=== PATIENT | male | born 1965 | race Caucasian/White ===

== ENCOUNTER 2020-06-16 15:24 | Inpatient (IN) | payer OTHER ==
[2020-06-16 16:40] VITALS: BMI 20.9
[2020-06-16] MEDS ORDERED: chlordiazePOXIDE HCL 25 MG CAPSULE PO PRN (18:11)
[2020-06-16] MEDS ORDERED: ACETAMINOPHEN 325 MG TABLET (FP) PO PRN (18:11)
[2020-06-16] MEDS ORDERED: MENTHOL/PHENOL 1 EACH UD MM PRN (18:11)
[2020-06-16] MEDS ORDERED: chlordiazePOXIDE HCL 25 MG CAPSULE PO ONE (18:11)
[2020-06-16] MEDS ORDERED: BISMUTH SUBSALICYLATE 524 MG/30 ML UD PO PRN (18:11)
[2020-06-16] MEDS ORDERED: MAGNESIUM HYDROX 2400MG/30ML ORAL SUSPENSION 30 ML CUP PO PRN (18:11)
[2020-06-16] MEDS ORDERED: METHADONE HCL 10 MG TABLET (FOR DETOX USE ONLY) PO ONE (18:11)
[2020-06-16] MEDS ORDERED: ONDANSETRON *ODT* 4 MG TABLET SL PRN (18:11)
[2020-06-16] MEDS ORDERED: MAGNESIUM CITRATE 300 ML BOTTLE PO PRN (18:11)
[2020-06-16] MEDS ORDERED: MAG HYDROX/AL HYDROX/SIMETH 30 ML UNIT-DOSE CUP PO PRN (18:11)
[2020-06-16] MEDS ORDERED: NICOTINE POLACRILEX 2 MG GUM BUC PRN (18:11)
[2020-06-16] MEDS: NICOTINE 7 MG/24 HOURS TOPICAL PATCH TD SCH (19:32)
[2020-06-16] MEDS: chlordiazePOXIDE HCL 25 MG CAPSULE PO SCH (22:38)
[2020-06-16] MEDS: THIAMINE HCL 100 MG TABLET (FP) PO SCH (22:38)
[2020-06-16] MEDS: cloNIDine HCL 0.1 MG TABLET PO PRN (22:38)
[2020-06-16] MEDS: hydrOXYzine PAMOATE 25 MG CAPSULE (FP) PO SCH (22:38)
[2020-06-16] MEDS: MELATONIN 5 MG TABLETS PO SCH (23:17)
[2020-06-17] MEDS: chlordiazePOXIDE HCL 25 MG CAPSULE PO SCH ×4 (06:40→22:36)
[2020-06-17] MEDS: hydrOXYzine PAMOATE 25 MG CAPSULE (FP) PO SCH ×5 (06:40→22:36)
[2020-06-17] MEDS: ACETAMINOPHEN 325 MG TABLET (FP) PO PRN (09:04)
[2020-06-17] MEDS ORDERED: METHADONE HCL 10 MG TABLET (FOR DETOX USE ONLY) ONE (09:28)
[2020-06-17] MEDS ORDERED: METHADONE HCL 5 MG TABLET (FOR DETOX USE ONLY) ONE (09:28)
[2020-06-17] MEDS ORDERED: METHADONE (DETOX) 20 MG, METHADONE (DETOX) 5 MG PO ONE (10:00)
[2020-06-17] MEDS: PRENATAL VITAMINS W/ FOLIC ACID TABLET (FP) PO SCH (10:08)
[2020-06-17] MEDS: NICOTINE 7 MG/24 HOURS TOPICAL PATCH TD SCH (10:08)
[2020-06-17] MEDS: cloNIDine HCL 0.1 MG TABLET PO PRN (12:53)
[2020-06-17] MEDS: THIAMINE HCL 100 MG TABLET (FP) PO SCH (22:36)
[2020-06-17] MEDS: MELATONIN 5 MG TABLETS PO SCH (22:36)
[2020-06-18] MEDS: chlordiazePOXIDE HCL 25 MG CAPSULE PO SCH ×4 (07:00→22:40)
[2020-06-18] MEDS: hydrOXYzine PAMOATE 25 MG CAPSULE (FP) PO SCH ×2 (07:00→10:09)
[2020-06-18] MEDS ORDERED: METHADONE HCL 10 MG TABLET (FOR DETOX USE ONLY) PO ONE (10:00)
[2020-06-18] MEDS: PRENATAL VITAMINS W/ FOLIC ACID TABLET (FP) PO SCH (10:09)
[2020-06-18] MEDS: NICOTINE 7 MG/24 HOURS TOPICAL PATCH TD SCH (10:09)
[2020-06-18] MEDS: METHOCARBAMOL 500 MG TABLET PO PRN ×2 (10:15→22:40)
[2020-06-18] MEDS: IBUPROFEN 400 MG TABLET (FP) PO PRN ×2 (10:15→17:46)
[2020-06-18 10:28] LABS: HEMATOCRIT 42.8 % (35.4-49); HEMOGLOBIN 14.1 GM/dL (11.7-16.9); MCH 28.5 pg (25.7-33.7); MCHC 33.1 g/dl (32.0-35.9); MEAN CELL VOLUME 86.1 fl (80-96); MEAN PLT VOLUME 7.8 fl (7.5-11.1); PLATELET COUNT 294 K/MM3 (134-434); RBC 4.96 M/mm3 (4.00-5.60); WHITE BLOOD COUNT 7.4 K/mm3 (4.0-10.0)
[2020-06-18 10:40] LABS: BLOOD UREA NITROGEN 24.6 mg/dL (7-18)
[2020-06-18 10:41] LABS: ALBUMIN 3.2 g/dl (3.4-5.0)
[2020-06-18 10:44] LABS: CREATININE 1.4 mg/dL (0.55-1.3)
[2020-06-18 10:45] LABS: BILIRUBIN,TOTAL 0.7 mg/dL (0.2-1)
[2020-06-18 10:46] LABS: TOT PROT 7.1 g/dl (6.4-8.2)
[2020-06-18] MEDS ORDERED: hydrOXYzine PAMOATE 25 MG CAPSULE (FP) PO PRN (10:58)
[2020-06-18] MEDS ORDERED: MASKS NR ONE (17:38)
[2020-06-18] MEDS: MELATONIN 5 MG TABLETS PO SCH (22:39)
[2020-06-18] MEDS: THIAMINE HCL 100 MG TABLET (FP) PO SCH (22:39)
[2020-06-19] MEDS ORDERED: chlordiazePOXIDE HCL 10 MG CAPSULE PO PRN
[2020-06-19] MEDS: chlordiazePOXIDE HCL 10 MG CAPSULE PO SCH ×4 (07:01→22:00)
[2020-06-19] MEDS ORDERED: METHADONE HCL 10 MG TABLET (FOR DETOX USE ONLY) ONE (08:49)
[2020-06-19] MEDS ORDERED: METHADONE HCL 5 MG TABLET (FOR DETOX USE ONLY) ONE (08:49)
[2020-06-19] MEDS ORDERED: METHADONE (DETOX) 10 MG, METHADONE (DETOX) 5 MG PO ONE (10:00)
[2020-06-19] MEDS: PRENATAL VITAMINS W/ FOLIC ACID TABLET (FP) PO SCH (10:12)
[2020-06-19] MEDS: NICOTINE 7 MG/24 HOURS TOPICAL PATCH TD SCH (10:17)
[2020-06-19] MEDS: cloNIDine HCL 0.1 MG TABLET PO SCH ×2 (10:23→21:54)
[2020-06-19 10:37] LABS: POTASSIUM 4.3 mmol/L (3.5-5.1)
[2020-06-19 10:44] LABS: CALCIUM 8.9 mg/dL (8.5-10.1)
[2020-06-19 10:45] LABS: ALBUMIN 3.2 g/dl (3.4-5.0); BLOOD UREA NITROGEN 21.7 mg/dL (7-18)
[2020-06-19 10:48] LABS: CREATININE 1.1 mg/dL (0.55-1.3)
[2020-06-19 10:50] LABS: TOT PROT 7.3 g/dl (6.4-8.2)
[2020-06-19] MEDS ORDERED: amLODIPine BESYLATE 10 MG TABLET (FP) PO ONE (12:04)
[2020-06-19] MEDS: IBUPROFEN 400 MG TABLET (FP) PO PRN (17:46)
[2020-06-19] MEDS: THIAMINE HCL 100 MG TABLET (FP) PO SCH (21:54)
[2020-06-19] MEDS: MELATONIN 5 MG TABLETS PO SCH (22:01)
[2020-06-20] MEDS: chlordiazePOXIDE HCL 10 MG CAPSULE PO SCH ×2 (07:17→17:50)
[2020-06-20] MEDS: cloNIDine HCL 0.1 MG TABLET PO SCH ×2 (09:37→22:01)
[2020-06-20] MEDS: PRENATAL VITAMINS W/ FOLIC ACID TABLET (FP) PO SCH (09:38)
[2020-06-20] MEDS: METHOCARBAMOL 500 MG TABLET PO PRN (09:38)
[2020-06-20] MEDS: amLODIPine BESYLATE 10 MG TABLET (FP) PO SCH (09:38)
[2020-06-20] MEDS: NICOTINE 7 MG/24 HOURS TOPICAL PATCH TD SCH (09:38)
[2020-06-20] MEDS ORDERED: METHADONE HCL 10 MG TABLET (FOR DETOX USE ONLY) PO ONE (10:00)
[2020-06-20] MEDS: MELATONIN 5 MG TABLETS PO SCH ×2 (22:01→22:58)
[2020-06-20] MEDS: THIAMINE HCL 100 MG TABLET (FP) PO SCH (22:02)
[2020-06-20] MEDS: ACETAMINOPHEN 325 MG TABLET (FP) PO PRN (22:55)
[2020-06-21] MEDS ORDERED: chlordiazePOXIDE HCL 10 MG CAPSULE PO ONE (05:00)
[2020-06-21] MEDS ORDERED: METHADONE HCL 5 MG TABLET (FOR DETOX USE ONLY) PO ONE (06:00)
[2020-06-21] MEDS: cloNIDine HCL 0.1 MG TABLET PO SCH (11:09)
[2020-06-21] MEDS: amLODIPine BESYLATE 10 MG TABLET (FP) PO SCH (11:09)
[2020-06-21] MEDS: PRENATAL VITAMINS W/ FOLIC ACID TABLET (FP) PO SCH (11:09)
[2020-06-21] MEDS: NICOTINE 7 MG/24 HOURS TOPICAL PATCH TD SCH (11:09)
[2020-06-21] MEDS: METHOCARBAMOL 500 MG TABLET PO PRN (12:04)
[2020-06-21] MEDS: IBUPROFEN 400 MG TABLET (FP) PO PRN (12:04)
[2020-06-21 12:11] VITALS: BP 129/85; PULSE 76; TEMP 97.3
== END 2020-06-21 23:04 | disposition short-term general hospital (02) | DRG 773 ==
LOC: YASAS 15:24 → Y6N 18:00
PROVIDERS: ADMIT Allergy & Immunology; ATTEND Allergy & Immunology
PROC: HZ2ZZZZ Detoxification Services for Substance Abuse Treatment (ICD-10-PCS; principal; 2020-06-16)
DX: F11.23 Opioid dependence with withdrawal (principal); F10.230 Alcohol dependence with withdrawal, uncomplicated; F14.10 Cocaine abuse, uncomplicated; F17.210 Nicotine dependence, cigarettes, uncomplicated; I10 Essential (primary) hypertension; E11.9 Type 2 diabetes mellitus without complications; E78.5 Hyperlipidemia, unspecified; R79.89 Other specified abnormal findings of blood chemistry; R51.9 Headache, unspecified; Z98.890 Other specified postprocedural states; Z79.84 Long term (current) use of oral hypoglycemic drugs; Z56.0 Unemployment, unspecified; Z86.69 Personal history of other diseases of the nervous system and sense organs; W18.39XA Other fall on same level, initial encounter; Z91.81 History of falling; Y93.89 Activity, other specified; Y92.230 Patient room in hospital as the place of occurrence of the external cause; Y99.9 Unspecified external cause status; Z99.3 Dependence on wheelchair
CPT/HCPCS: 36415; 80053; 82962; 85027; 86780; 93005; 93010; C9803; J0735; Q0162; U0003

== ENCOUNTER 2020-06-21 12:46 | Inpatient (IN) | payer BC, OTHER ==
[2020-06-21] MEDS ORDERED: ACETAMINOPHEN 1000 MG/100 ML VIAL (NON FORMULARY) IVPB ONE (13:27)
[2020-06-21] MEDS ORDERED: SODIUM CHLORIDE 0.9% 500 ML INFUS.BAG IV ONE (13:27)
[2020-06-21] MEDS ORDERED: ACETAMINOPHEN INJECTION 100 ML IVPB ONE (13:36)
[2020-06-21 14:23] LABS: BASO % 0.5 % (0-2.0); EOS % 3.9 % (0-4.5); HEMATOCRIT 40.1 % (35.4-49); HEMOGLOBIN 13.3 GM/dL (11.7-16.9); MCH 28.7 pg (25.7-33.7); MCHC 33.2 g/dl (32.0-35.9); MEAN CELL VOLUME 86.6 fl (80-96); MEAN PLT VOLUME 7.6 fl (7.5-11.1); MONO % 12.6 % (3.8-10.2); PLATELET COUNT 271 K/MM3 (134-434); RBC 4.63 M/mm3 (4.00-5.60); RDW 16.7 % (11.9-15.9)
[2020-06-21 14:46] LABS: CHLORIDE 102 mmol/L (98-107); POTASSIUM 4.6 mmol/L (3.5-5.1); SODIUM 138 mmol/L (136-145)
[2020-06-21 14:48] LABS: CALCIUM 8.5 mg/dL (8.5-10.1)
[2020-06-21 14:49] LABS: ALBUMIN 2.9 g/dl (3.4-5.0); ANION GAP 5 MMOL/L (8-16); BLOOD UREA NITROGEN 28.1 mg/dL (7-18); CO2 32 mmol/L (21-32); GLUCOSE,RANDOM 129 mg/dL (74-106)
[2020-06-21 14:52] LABS: CREATININE 1.1 mg/dL (0.55-1.3); SGOT/AST 15 U/L (15-37); SGPT/ALT 18 U/L (13-61)
[2020-06-21 14:53] LABS: BILIRUBIN,TOTAL 0.4 mg/dL (0.2-1); TOT PROT 6.8 g/dl (6.4-8.2)
[2020-06-21 14:55] LABS: ALK PHOS 67 U/L (45-117)
[2020-06-21] MEDS ORDERED: KETOROLAC TROMETHAMINE 15 MG/ML VIAL IVPUSH ONE (16:45)
[2020-06-21] MEDS ORDERED: LIDOCAINE 5% TOPICAL PATCH TP ONE (16:50)
[2020-06-21] MEDS ORDERED: LIDOCAINE 5% TOPICAL PATCH ONE (17:06)
[2020-06-21] MEDS ORDERED: KETOROLAC TROMETHAMINE 15 MG/ML VIAL ONE (17:06)
[2020-06-21] MEDS ORDERED: FOLIC ACID INJECTION - 1 MG, THIAMINE HCL 100 MG, MULTIVIT INJECTION ADULT 10 ML in SOD... IVPB ONE (22:27)
[2020-06-21] MEDS ORDERED: chlordiazePOXIDE HCL 25 MG CAPSULE PO PRN (22:42)
[2020-06-21] MEDS ORDERED: chlordiazePOXIDE HCL 25 MG CAPSULE PO SCH (23:00)
[2020-06-21] MEDS ORDERED: chlordiazePOXIDE HCL 25 MG CAPSULE ONE (23:02)
[2020-06-22 05:00] LABS: URINE APPEARANCE CLEAR; URINE BILIRUBIN NEGATIVE (NEGATIVE); URINE COLOR DK YELLOW; URINE GLUCOSE (UA) NEGATIVE (NEGATIVE); URINE KETONE TRACE (NEGATIVE); URINE LEUK ESTERASE NEGATIVE (NEGATIVE); URINE NITRITE NEGATIVE (NEGATIVE); URINE PROTEIN TRACE (NEGATIVE)
[2020-06-22] MEDS ORDERED: LIDOCAINE PATCH REMOVAL MC SCH (05:00)
[2020-06-22] MEDS ORDERED: LIDOCAINE PATCH REMOVAL MC ONE (05:00)
[2020-06-22 05:09] LABS: URINE BARBITURATES NEGATIVE ng/ml (CUTOFF=200)
[2020-06-22 05:10] LABS: OPIATES, URI NEGATIVE ng/ml (CUTOFF=300); PHENCYCLIDINE,URINE NEGATIVE ng/ml (CUTOFF=25)
[2020-06-22 05:13] LABS: URINE AMPHETAMINES NEGATIVE ng/ml (CUTOFF=500)
[2020-06-22 05:14] LABS: COCAINE, UR POSITIVE ng/ml (CUTOFF=300)
[2020-06-22 05:15] LABS: METHADONE, UR POSITIVE ng/ml (CUTOFF=300); URINE BENZODIAZEPINES POSITIVE ng/ml (CUTOFF=200)
[2020-06-22 08:29] LABS: HEMATOCRIT 37.7 % (35.4-49); HEMOGLOBIN 12.6 GM/dL (11.7-16.9); MCH 28.6 pg (25.7-33.7); MCHC 33.3 g/dl (32.0-35.9); MEAN CELL VOLUME 85.9 fl (80-96); MEAN PLT VOLUME 7.2 fl (7.5-11.1); PLATELET COUNT 251 K/MM3 (134-434); RBC 4.39 M/mm3 (4.00-5.60); RDW 16.8 % (11.9-15.9); WHITE BLOOD COUNT 4.7 K/mm3 (4.0-10.0)
[2020-06-22 08:51] LABS: POTASSIUM 4.4 mmol/L (3.5-5.1)
[2020-06-22 08:53] LABS: CALCIUM 8.2 mg/dL (8.5-10.1)
[2020-06-22 08:54] LABS: BLOOD UREA NITROGEN 26.4 mg/dL (7-18); MAGNESIUM 2.4 mg/dL (1.8-2.4)
[2020-06-22 08:56] LABS: CREATININE 1.1 mg/dL (0.55-1.3)
[2020-06-22 08:57] LABS: PHOSPHOROUS 3.1 mg/dL (2.5-4.9)
[2020-06-22 08:58] LABS: BILIRUBIN,TOTAL 0.4 mg/dL (0.2-1); TOT PROT 6.5 g/dl (6.4-8.2)
[2020-06-22] MEDS: INSULIN SLIDING SCALE (NOVOLOG) 1 VIAL SQ SCH ×4 (09:45→21:41)
[2020-06-22] MEDS ORDERED: THIAMINE HCL 100 MG TABLET (FP) PO SCH (10:00)
[2020-06-22] MEDS ORDERED: FOLIC ACID 1 MG TABLET (FP) PO SCH (10:00)
[2020-06-22] MEDS ORDERED: MULTIVITAMINS (DAILY MVI) TABLET (FP) PO SCH (10:00)
[2020-06-22] MEDS ORDERED: ENOXAPARIN NA (PORCINE) 40 MG/0.4 ML DISP.SYRIN SQ SCH (10:00)
[2020-06-22] MEDS ORDERED: THIAMINE HCL 100 MG TABLET (FP) ONE (10:14)
[2020-06-22] MEDS ORDERED: MULTIVITAMINS (DAILY MVI) TABLET (FP) ONE (10:14)
[2020-06-22] MEDS ORDERED: ENOXAPARIN NA (PORCINE) 40 MG/0.4 ML DISP.SYRIN SQ ONE (10:15)
[2020-06-22] MEDS ORDERED: FOLIC ACID 1 MG TABLET (FP) ONE (10:15)
[2020-06-22] MEDS ORDERED: ACETAMINOPHEN 325 MG TABLET (FP) PO ONE (10:15)
[2020-06-22] MEDS ORDERED: levETIRAcetam 500 MG/5 ML INJECTION VIAL IVPB ONE (16:38)
[2020-06-22] MEDS ORDERED: PT OWN MED DRAWER 7, Y5N ONE (21:34)
[2020-06-22] MEDS ORDERED: INSULIN (NOVOLOG) ASPART 100 UNITS/ML 10ML VIAL ONE (21:34)
[2020-06-22] MEDS: CARVEDILOL 6.25 MG TABLET (FP) PO SCH (21:41)
[2020-06-22] MEDS ORDERED: CARVEDILOL 6.25 MG TABLET (FP) PO SCH (22:00)
[2020-06-22] MEDS: levETIRAcetam 500 MG/5 ML INJECTION VIAL IVPB SCH (23:34)
[2020-06-23] MEDS ORDERED: chlordiazePOXIDE HCL 25 MG CAPSULE PO SCH (05:00)
[2020-06-23 08:26] LABS: BASO % 0.7 % (0-2.0); EOS % 1.1 % (0-4.5); HEMATOCRIT 40.6 % (35.4-49); HEMOGLOBIN 13.4 GM/dL (11.7-16.9); LYMPH % 29.9 % (8-40); MCH 28.2 pg (25.7-33.7); MCHC 32.9 g/dl (32.0-35.9); MEAN CELL VOLUME 85.8 fl (80-96); MEAN PLT VOLUME 7.3 fl (7.5-11.1); MONO % 21.2 % (3.8-10.2); NEUT % 47.1 % (42.8-82.8); PLATELET COUNT 279 K/MM3 (134-434); RBC 4.73 M/mm3 (4.00-5.60); RDW 16.7 % (11.9-15.9); WHITE BLOOD COUNT 3.7 K/mm3 (4.0-10.0)
[2020-06-23 08:55] LABS: CHOLESTEROL 141 mg/dL (50-200); LDL CHOLESTEROL (ONLY SJRH) 98 mg/dL (5-100); TRIGLYCERIDES 73 mg/dL (0-150)
[2020-06-23 08:57] LABS: HDL CHOLESTEROL 37 mg/dL (40-60)
[2020-06-23 09:12] LABS: CHLORIDE 105 mmol/L (98-107); POTASSIUM 4.2 mmol/L (3.5-5.1); SODIUM 137 mmol/L (136-145)
[2020-06-23 09:20] LABS: ALBUMIN 2.9 g/dl (3.4-5.0); ANION GAP 6 MMOL/L (8-16); BLOOD UREA NITROGEN 17.6 mg/dL (7-18); CALCIUM 8.4 mg/dL (8.5-10.1); CO2 25 mmol/L (21-32); GLUCOSE,RANDOM 115 mg/dL (74-106); MAGNESIUM 2.4 mg/dL (1.8-2.4)
[2020-06-23 09:22] LABS: CREATININE 0.9 mg/dL (0.55-1.3)
[2020-06-23 09:24] LABS: ALK PHOS 69 U/L (45-117); BILIRUBIN,TOTAL 0.3 mg/dL (0.2-1); PHOSPHOROUS 3.6 mg/dL (2.5-4.9); SGOT/AST 12 U/L (15-37); SGPT/ALT 17 U/L (13-61); TOT PROT 6.7 g/dl (6.4-8.2)
[2020-06-23] MEDS: LOSARTAN POTASSIUM 50 MG TABLET PO SCH (10:18)
[2020-06-23] MEDS: MULTIVITAMINS (DAILY MVI) TABLET (FP) PO SCH (10:18)
[2020-06-23] MEDS: FOLIC ACID 1 MG TABLET (FP) PO SCH (10:18)
[2020-06-23] MEDS: levETIRAcetam 500 MG/5 ML INJECTION VIAL IVPB SCH ×2 (10:18→21:14)
[2020-06-23] MEDS: THIAMINE HCL 100 MG TABLET (FP) PO SCH (10:18)
[2020-06-23] MEDS: CARVEDILOL 6.25 MG TABLET (FP) PO SCH ×2 (10:18→21:15)
[2020-06-23] MEDS: ENOXAPARIN NA (PORCINE) 40 MG/0.4 ML DISP.SYRIN SQ SCH (10:19)
[2020-06-23 11:23] LABS: ANISOCYTOSIS 0; MACROCYTOSIS 0; PLATELET ESTIMATE NORMAL
[2020-06-23] MEDS: INSULIN SLIDING SCALE (NOVOLOG) 1 VIAL SQ SCH ×4 (17:48→21:28)
[2020-06-23] MEDS: ACETAMINOPHEN 325 MG TABLET (FP) PO PRN (21:27)
[2020-06-23] MEDS: MELATONIN 5 MG TABLETS PO PRN (21:46)
[2020-06-24] MEDS ORDERED: chlordiazePOXIDE HCL 10 MG CAPSULE PO PRN
[2020-06-24] MEDS ORDERED: MELATONIN 5 MG TABLETS PO ONE (00:54)
[2020-06-24] MEDS: ACETAMINOPHEN 325 MG TABLET (FP) PO PRN ×4 (03:37→21:09)
[2020-06-24] MEDS ORDERED: chlordiazePOXIDE HCL 10 MG CAPSULE PO SCH (05:00)
[2020-06-24] MEDS: INSULIN SLIDING SCALE (NOVOLOG) 1 VIAL SQ SCH ×4 (06:30→16:55)
[2020-06-24 08:14] LABS: BASO % 0.6 % (0-2.0); EOS % 1.1 % (0-4.5); HEMATOCRIT 44.6 % (35.4-49); HEMOGLOBIN 14.4 GM/dL (11.7-16.9); MCH 27.7 pg (25.7-33.7); MCHC 32.4 g/dl (32.0-35.9); MEAN CELL VOLUME 85.6 fl (80-96); MEAN PLT VOLUME 7.3 fl (7.5-11.1); MONO % 17.3 % (3.8-10.2); PLATELET COUNT 298 K/MM3 (134-434); RBC 5.21 M/mm3 (4.00-5.60); RDW 17.1 % (11.9-15.9); WHITE BLOOD COUNT 3.9 K/mm3 (4.0-10.0)
[2020-06-24 08:26] LABS: POTASSIUM 4.3 mmol/L (3.5-5.1)
[2020-06-24 08:34] LABS: ALBUMIN 3.2 g/dl (3.4-5.0); BLOOD UREA NITROGEN 19.7 mg/dL (7-18); CALCIUM 8.5 mg/dL (8.5-10.1); MAGNESIUM 2.3 mg/dL (1.8-2.4)
[2020-06-24 08:37] LABS: CREATININE 0.9 mg/dL (0.55-1.3); PHOSPHOROUS 4.1 mg/dL (2.5-4.9)
[2020-06-24 08:38] LABS: BILIRUBIN,TOTAL 0.4 mg/dL (0.2-1)
[2020-06-24 08:39] LABS: TOT PROT 7.1 g/dl (6.4-8.2)
[2020-06-24] MEDS: THIAMINE HCL 100 MG TABLET (FP) PO SCH (09:24)
[2020-06-24] MEDS: LOSARTAN POTASSIUM 50 MG TABLET PO SCH (09:24)
[2020-06-24] MEDS: ENOXAPARIN NA (PORCINE) 40 MG/0.4 ML DISP.SYRIN SQ SCH (09:24)
[2020-06-24] MEDS: MULTIVITAMINS (DAILY MVI) TABLET (FP) PO SCH (09:24)
[2020-06-24] MEDS: FOLIC ACID 1 MG TABLET (FP) PO SCH (09:24)
[2020-06-24] MEDS: CARVEDILOL 6.25 MG TABLET (FP) PO SCH ×2 (09:24→21:08)
[2020-06-24] MEDS: levETIRAcetam 500 MG/5 ML INJECTION VIAL IVPB SCH ×2 (09:24→21:08)
[2020-06-24] MEDS ORDERED: LORazepam 2 MG/ML SDV VIAL IVPUSH PRN (18:12)
[2020-06-24] MEDS: MELATONIN 5 MG TABLETS PO PRN (21:08)
[2020-06-25] MEDS ORDERED: chlordiazePOXIDE HCL 10 MG CAPSULE PO SCH (05:00)
[2020-06-25] MEDS: INSULIN SLIDING SCALE (NOVOLOG) 1 VIAL SQ SCH ×4 (06:23→21:26)
[2020-06-25 08:07] VITALS: BMI 20.5
[2020-06-25] MEDS: FOLIC ACID 1 MG TABLET (FP) PO SCH (10:26)
[2020-06-25] MEDS: CARVEDILOL 6.25 MG TABLET (FP) PO SCH ×2 (10:26→21:05)
[2020-06-25] MEDS: LOSARTAN POTASSIUM 50 MG TABLET PO SCH (10:26)
[2020-06-25] MEDS: THIAMINE HCL 100 MG TABLET (FP) PO SCH (10:26)
[2020-06-25] MEDS: levETIRAcetam 500 MG/5 ML INJECTION VIAL IVPB SCH ×2 (10:26→21:05)
[2020-06-25] MEDS: MULTIVITAMINS (DAILY MVI) TABLET (FP) PO SCH (10:26)
[2020-06-25] MEDS: ENOXAPARIN NA (PORCINE) 40 MG/0.4 ML DISP.SYRIN SQ SCH (10:27)
[2020-06-25 11:12] LABS: BASO % 0.5 % (0-2.0); EOS % 0.3 % (0-4.5); HEMATOCRIT 47.5 % (35.4-49); HEMOGLOBIN 15.6 GM/dL (11.7-16.9); LYMPH % 24.7 % (8-40); MCH 28.4 pg (25.7-33.7); MCHC 32.9 g/dl (32.0-35.9); MEAN CELL VOLUME 86.1 fl (80-96); MEAN PLT VOLUME 7.9 fl (7.5-11.1); MONO % 10.9 % (3.8-10.2); NEUT % 63.6 % (42.8-82.8); PLATELET COUNT 324 K/MM3 (134-434); RBC 5.51 M/mm3 (4.00-5.60); RDW 17.2 % (11.9-15.9); WHITE BLOOD COUNT 5.4 K/mm3 (4.0-10.0)
[2020-06-25 11:31] LABS: POTASSIUM 4.2 mmol/L (3.5-5.1)
[2020-06-25 11:32] LABS: CALCIUM 8.9 mg/dL (8.5-10.1)
[2020-06-25 11:33] LABS: ALBUMIN 3.4 g/dl (3.4-5.0); MAGNESIUM 2.4 mg/dL (1.8-2.4)
[2020-06-25 11:37] LABS: BILIRUBIN,TOTAL 0.3 mg/dL (0.2-1); PHOSPHOROUS 3.6 mg/dL (2.5-4.9); TOT PROT 7.6 g/dl (6.4-8.2)
[2020-06-25] MEDS ORDERED: INSULIN (NOVOLOG) ASPART 100 UNITS/ML 10ML VIAL ONE ×2 (17:45→20:49)
[2020-06-25] MEDS: MELATONIN 5 MG TABLETS PO PRN (21:06)
[2020-06-25] MEDS ORDERED: KETOROLAC TROMETHAMINE 30 MG/1 ML VIAL IVPUSH ONE (21:23)
[2020-06-26] MEDS ORDERED: chlordiazePOXIDE HCL 10 MG CAPSULE PO ONE (05:00)
[2020-06-26] MEDS: CARVEDILOL 6.25 MG TABLET (FP) PO SCH ×2 (10:25→21:11)
[2020-06-26] MEDS: LOSARTAN POTASSIUM 50 MG TABLET PO SCH (10:25)
[2020-06-26] MEDS: MULTIVITAMINS (DAILY MVI) TABLET (FP) PO SCH (10:25)
[2020-06-26] MEDS: ENOXAPARIN NA (PORCINE) 40 MG/0.4 ML DISP.SYRIN SQ SCH (10:26)
[2020-06-26] MEDS: levETIRAcetam 500 MG/5 ML INJECTION VIAL IVPB SCH (10:26)
[2020-06-26] MEDS: FOLIC ACID 1 MG TABLET (FP) PO SCH (10:26)
[2020-06-26] MEDS: THIAMINE HCL 100 MG TABLET (FP) PO SCH (10:27)
[2020-06-26] MEDS: INSULIN SLIDING SCALE (NOVOLOG) 1 VIAL SQ SCH ×4 (12:39→21:27)
[2020-06-26] MEDS ORDERED: PT OWN MED DRAWER 7, Y5N ONE (17:13)
[2020-06-26] MEDS ORDERED: INSULIN (NOVOLOG) ASPART 100 UNITS/ML 10ML VIAL ONE (17:14)
[2020-06-26] MEDS ORDERED: levETIRAcetam 500 MG TABLET (FP) PO SCH (22:00)
[2020-06-26] MEDS: LORazepam 1 MG TABLET PO PRN (22:17)
[2020-06-26] MEDS: ACETAMINOPHEN 325 MG TABLET (FP) PO PRN (22:18)
[2020-06-27] MEDS: INSULIN SLIDING SCALE (NOVOLOG) 1 VIAL SQ SCH ×4 (06:31→21:26)
[2020-06-27] MEDS: FOLIC ACID 1 MG TABLET (FP) PO SCH ×2 (08:31→09:02)
[2020-06-27] MEDS: ENOXAPARIN NA (PORCINE) 40 MG/0.4 ML DISP.SYRIN SQ SCH ×2 (08:31→09:02)
[2020-06-27] MEDS: ACETAMINOPHEN 325 MG TABLET (FP) PO PRN (08:31)
[2020-06-27] MEDS: THIAMINE HCL 100 MG TABLET (FP) PO SCH ×2 (08:32→09:02)
[2020-06-27] MEDS: CARVEDILOL 6.25 MG TABLET (FP) PO SCH ×3 (08:32→21:25)
[2020-06-27] MEDS: levETIRAcetam 500 MG TABLET (FP) PO SCH ×3 (08:32→21:25)
[2020-06-27] MEDS: LOSARTAN POTASSIUM 50 MG TABLET PO SCH ×2 (08:32→09:02)
[2020-06-27] MEDS: MULTIVITAMINS (DAILY MVI) TABLET (FP) PO SCH ×2 (08:32→09:03)
[2020-06-27] MEDS: LORazepam 1 MG TABLET PO PRN (14:24)
[2020-06-27] MEDS: MELATONIN 5 MG TABLETS PO PRN (21:25)
[2020-06-28] MEDS: LORazepam 1 MG TABLET PO PRN ×2 (00:13→15:37)
[2020-06-28] MEDS: INSULIN SLIDING SCALE (NOVOLOG) 1 VIAL SQ SCH ×4 (06:13→21:31)
[2020-06-28] MEDS: ENOXAPARIN NA (PORCINE) 40 MG/0.4 ML DISP.SYRIN SQ SCH (09:33)
[2020-06-28] MEDS: ACETAMINOPHEN 325 MG TABLET (FP) PO PRN ×2 (09:34→21:30)
[2020-06-28] MEDS: levETIRAcetam 500 MG TABLET (FP) PO SCH ×2 (09:34→21:31)
[2020-06-28] MEDS: LOSARTAN POTASSIUM 50 MG TABLET PO SCH (09:34)
[2020-06-28] MEDS: MULTIVITAMINS (DAILY MVI) TABLET (FP) PO SCH (09:34)
[2020-06-28] MEDS: CARVEDILOL 6.25 MG TABLET (FP) PO SCH ×2 (09:34→21:31)
[2020-06-28] MEDS: THIAMINE HCL 100 MG TABLET (FP) PO SCH (09:34)
[2020-06-28] MEDS: FOLIC ACID 1 MG TABLET (FP) PO SCH (09:34)
[2020-06-28] MEDS: MELATONIN 5 MG TABLETS PO PRN (21:30)
[2020-06-29] MEDS ORDERED: CARVEDILOL 6.25 MG TABLET (FP) PO ONE (05:33)
[2020-06-29] MEDS: INSULIN SLIDING SCALE (NOVOLOG) 1 VIAL SQ SCH ×4 (06:24→21:15)
[2020-06-29] MEDS: levETIRAcetam 500 MG TABLET (FP) PO SCH ×2 (09:39→21:08)
[2020-06-29] MEDS: MULTIVITAMINS (DAILY MVI) TABLET (FP) PO SCH (09:40)
[2020-06-29] MEDS: LORazepam 1 MG TABLET PO PRN ×2 (09:40→21:08)
[2020-06-29] MEDS: FOLIC ACID 1 MG TABLET (FP) PO SCH (09:40)
[2020-06-29] MEDS: ENOXAPARIN NA (PORCINE) 40 MG/0.4 ML DISP.SYRIN SQ SCH (09:41)
[2020-06-29] MEDS: THIAMINE HCL 100 MG TABLET (FP) PO SCH (09:41)
[2020-06-29] MEDS: LOSARTAN POTASSIUM 50 MG TABLET PO SCH (09:41)
[2020-06-29] MEDS ORDERED: PT OWN MED DRAWER 7, Y5N ONE (20:38)
[2020-06-29] MEDS: ACETAMINOPHEN 325 MG TABLET (FP) PO PRN (20:49)
[2020-06-29] MEDS: CARVEDILOL 6.25 MG TABLET (FP) PO SCH (22:45)
[2020-06-30] MEDS: INSULIN SLIDING SCALE (NOVOLOG) 1 VIAL SQ SCH ×4 (06:04→21:30)
[2020-06-30] MEDS: ACETAMINOPHEN 325 MG TABLET (FP) PO PRN (08:36)
[2020-06-30 08:39] LABS: BASO % 0.8 % (0-2.0); EOS % 0.7 % (0-4.5); HEMATOCRIT 41.4 % (35.4-49); HEMOGLOBIN 13.7 GM/dL (11.7-16.9); LYMPH % 34.1 % (8-40); MCH 28.1 pg (25.7-33.7); MEAN CELL VOLUME 85.1 fl (80-96); MEAN PLT VOLUME 7.7 fl (7.5-11.1); MONO % 10.1 % (3.8-10.2); NEUT % 54.3 % (42.8-82.8); PLATELET COUNT 256 K/MM3 (134-434); RBC 4.86 M/mm3 (4.00-5.60); RDW 16.7 % (11.9-15.9); WHITE BLOOD COUNT 4.9 K/mm3 (4.0-10.0)
[2020-06-30 08:59] LABS: POTASSIUM 4.1 mmol/L (3.5-5.1)
[2020-06-30 09:01] LABS: ALBUMIN 3.2 g/dl (3.4-5.0); BLOOD UREA NITROGEN 22.4 mg/dL (7-18); CALCIUM 8.7 mg/dL (8.5-10.1); MAGNESIUM 2.3 mg/dL (1.8-2.4)
[2020-06-30] MEDS: FOLIC ACID 1 MG TABLET (FP) PO SCH (09:01)
[2020-06-30] MEDS: LOSARTAN POTASSIUM 50 MG TABLET PO SCH (09:01)
[2020-06-30] MEDS: levETIRAcetam 500 MG TABLET (FP) PO SCH ×2 (09:02→21:30)
[2020-06-30] MEDS: THIAMINE HCL 100 MG TABLET (FP) PO SCH (09:02)
[2020-06-30] MEDS: ENOXAPARIN NA (PORCINE) 40 MG/0.4 ML DISP.SYRIN SQ SCH (09:02)
[2020-06-30] MEDS: MULTIVITAMINS (DAILY MVI) TABLET (FP) PO SCH (09:02)
[2020-06-30] MEDS: CARVEDILOL 6.25 MG TABLET (FP) PO SCH (09:02)
[2020-06-30 09:04] LABS: CREATININE 0.8 mg/dL (0.55-1.3)
[2020-06-30 09:05] LABS: PHOSPHOROUS 3.2 mg/dL (2.5-4.9)
[2020-06-30 09:06] LABS: BILIRUBIN,TOTAL 0.4 mg/dL (0.2-1); TOT PROT 6.9 g/dl (6.4-8.2)
[2020-06-30] MEDS: LORazepam 1 MG TABLET PO PRN ×2 (11:03→17:00)
[2020-06-30] MEDS ORDERED: INSULIN (NOVOLOG) ASPART 100 UNITS/ML 10ML VIAL ONE (21:27)
[2020-06-30] MEDS: CARVEDILOL 12.5 MG TABLET (FP) PO SCH (21:30)
[2020-06-30] MEDS: MELATONIN 5 MG TABLETS PO PRN (21:30)
[2020-07-01] MEDS: LORazepam 1 MG TABLET PO PRN (08:41)
[2020-07-01] MEDS: INSULIN SLIDING SCALE (NOVOLOG) 1 VIAL SQ SCH ×4 (09:19→21:45)
[2020-07-01 09:51] LABS: HEMATOCRIT 39.2 % (35.4-49); HEMOGLOBIN 13.2 GM/dL (11.7-16.9); MCH 28.6 pg (25.7-33.7); MCHC 33.7 g/dl (32.0-35.9); MEAN CELL VOLUME 84.8 fl (80-96); MEAN PLT VOLUME 7.7 fl (7.5-11.1); PLATELET COUNT 236 K/MM3 (134-434); RBC 4.62 M/mm3 (4.00-5.60); RDW 16.2 % (11.9-15.9); WHITE BLOOD COUNT 5.6 K/mm3 (4.0-10.0)
[2020-07-01] MEDS: FOLIC ACID 1 MG TABLET (FP) PO SCH (10:05)
[2020-07-01] MEDS: LOSARTAN POTASSIUM 50 MG TABLET PO SCH (10:05)
[2020-07-01] MEDS: THIAMINE HCL 100 MG TABLET (FP) PO SCH (10:05)
[2020-07-01] MEDS: levETIRAcetam 500 MG TABLET (FP) PO SCH ×2 (10:05→21:13)
[2020-07-01] MEDS: CARVEDILOL 12.5 MG TABLET (FP) PO SCH ×2 (10:05→21:13)
[2020-07-01] MEDS: MULTIVITAMINS (DAILY MVI) TABLET (FP) PO SCH (10:05)
[2020-07-01 10:13] LABS: POTASSIUM 4.3 mmol/L (3.5-5.1)
[2020-07-01] MEDS ORDERED: INSULIN (NOVOLOG) ASPART 100 UNITS/ML 10ML VIAL ONE (10:29)
[2020-07-01 10:50] LABS: CALCIUM 8.9 mg/dL (8.5-10.1)
[2020-07-01 10:51] LABS: BLOOD UREA NITROGEN 21.1 mg/dL (7-18)
[2020-07-01 10:54] LABS: CREATININE 0.9 mg/dL (0.55-1.3)
[2020-07-01] MEDS: ENOXAPARIN NA (PORCINE) 40 MG/0.4 ML DISP.SYRIN SQ SCH (11:06)
[2020-07-01] MEDS: MELATONIN 5 MG TABLETS PO PRN (21:13)
[2020-07-02] MEDS: INSULIN SLIDING SCALE (NOVOLOG) 1 VIAL SQ SCH ×3 (06:11→22:22)
[2020-07-02] MEDS ORDERED: INSULIN (NOVOLOG) ASPART 100 UNITS/ML 10ML VIAL ONE (06:57)
[2020-07-02 08:31] LABS: HEMATOCRIT 40.2 % (35.4-49); HEMOGLOBIN 13.4 GM/dL (11.7-16.9); MCH 28.3 pg (25.7-33.7); MCHC 33.2 g/dl (32.0-35.9); MEAN CELL VOLUME 85.3 fl (80-96); PLATELET COUNT 233 K/MM3 (134-434); POTASSIUM 4.1 mmol/L (3.5-5.1); RBC 4.72 M/mm3 (4.00-5.60); RDW 16.5 % (11.9-15.9); WHITE BLOOD COUNT 5.2 K/mm3 (4.0-10.0)
[2020-07-02 08:38] LABS: CALCIUM 9.1 mg/dL (8.5-10.1)
[2020-07-02 08:39] LABS: BLOOD UREA NITROGEN 18.6 mg/dL (7-18)
[2020-07-02 08:42] LABS: CREATININE 0.8 mg/dL (0.55-1.3)
[2020-07-02] MEDS: LOSARTAN POTASSIUM 50 MG TABLET PO SCH (09:54)
[2020-07-02] MEDS: FOLIC ACID 1 MG TABLET (FP) PO SCH (09:54)
[2020-07-02] MEDS: ACETAMINOPHEN 325 MG TABLET (FP) PO PRN ×2 (09:55→22:21)
[2020-07-02] MEDS: CARVEDILOL 12.5 MG TABLET (FP) PO SCH ×2 (09:55→22:22)
[2020-07-02] MEDS: THIAMINE HCL 100 MG TABLET (FP) PO SCH (09:56)
[2020-07-02] MEDS: MULTIVITAMINS (DAILY MVI) TABLET (FP) PO SCH (09:56)
[2020-07-02] MEDS: levETIRAcetam 500 MG TABLET (FP) PO SCH ×2 (09:56→22:22)
[2020-07-02] MEDS: ENOXAPARIN NA (PORCINE) 40 MG/0.4 ML DISP.SYRIN SQ SCH (09:56)
[2020-07-02] MEDS: amLODIPine BESYLATE 5 MG TABLET (FP) PO SCH (10:40)
[2020-07-02] MEDS: chlordiazePOXIDE HCL 25 MG CAPSULE PO PRN ×2 (12:04→18:44)
[2020-07-02] MEDS: GABAPENTIN 100 MG CAPSULE PO SCH (22:22)
[2020-07-02] MEDS: MELATONIN 5 MG TABLETS PO PRN (22:22)
[2020-07-03] MEDS: INSULIN SLIDING SCALE (NOVOLOG) 1 VIAL SQ SCH ×4 (06:16→23:26)
[2020-07-03] MEDS: GABAPENTIN 100 MG CAPSULE PO SCH ×3 (06:25→22:17)
[2020-07-03] MEDS: chlordiazePOXIDE HCL 25 MG CAPSULE PO PRN ×2 (06:25→13:23)
[2020-07-03] MEDS ORDERED: PT OWN MED DRAWER 7, Y5N ONE (09:04)
[2020-07-03] MEDS: ENOXAPARIN NA (PORCINE) 40 MG/0.4 ML DISP.SYRIN SQ SCH (09:20)
[2020-07-03] MEDS: LOSARTAN POTASSIUM 50 MG TABLET PO SCH (09:21)
[2020-07-03] MEDS: FOLIC ACID 1 MG TABLET (FP) PO SCH (09:21)
[2020-07-03] MEDS: THIAMINE HCL 100 MG TABLET (FP) PO SCH (09:21)
[2020-07-03] MEDS: levETIRAcetam 500 MG TABLET (FP) PO SCH ×2 (09:21→22:17)
[2020-07-03] MEDS: MULTIVITAMINS (DAILY MVI) TABLET (FP) PO SCH (09:21)
[2020-07-03] MEDS: amLODIPine BESYLATE 5 MG TABLET (FP) PO SCH (09:21)
[2020-07-03] MEDS: CARVEDILOL 12.5 MG TABLET (FP) PO SCH ×2 (09:21→22:17)
[2020-07-03] MEDS: ACETAMINOPHEN 325 MG TABLET (FP) PO PRN (09:21)
[2020-07-03] MEDS ORDERED: MAG HYDROX/AL HYDROX/SIMETH 30 ML UNIT-DOSE CUP PO ONE (18:23)
[2020-07-03] MEDS ORDERED: KETOROLAC TROMETHAMINE 30 MG/1 ML VIAL IM ONE (19:46)
[2020-07-04] MEDS: INSULIN SLIDING SCALE (NOVOLOG) 1 VIAL SQ SCH ×4 (06:28→21:04)
[2020-07-04] MEDS: GABAPENTIN 100 MG CAPSULE PO SCH ×3 (06:28→21:05)
[2020-07-04] MEDS: levETIRAcetam 500 MG TABLET (FP) PO SCH ×2 (10:53→21:05)
[2020-07-04] MEDS: FOLIC ACID 1 MG TABLET (FP) PO SCH (10:53)
[2020-07-04] MEDS: amLODIPine BESYLATE 10 MG TABLET (FP) PO SCH (10:53)
[2020-07-04] MEDS: THIAMINE HCL 100 MG TABLET (FP) PO SCH (10:53)
[2020-07-04] MEDS: MULTIVITAMINS (DAILY MVI) TABLET (FP) PO SCH (10:53)
[2020-07-04] MEDS: LOSARTAN POTASSIUM 50 MG TABLET PO SCH (10:54)
[2020-07-04] MEDS: CARVEDILOL 12.5 MG TABLET (FP) PO SCH ×2 (10:54→21:05)
[2020-07-04] MEDS: ENOXAPARIN NA (PORCINE) 40 MG/0.4 ML DISP.SYRIN SQ SCH (10:54)
[2020-07-04] MEDS: ACETAMINOPHEN 325 MG TABLET (FP) PO PRN ×2 (11:13→21:12)
[2020-07-04 11:32] LABS: HEMATOCRIT 43.3 % (35.4-49); HEMOGLOBIN 14.2 GM/dL (11.7-16.9); MCH 28.4 pg (25.7-33.7); MCHC 32.7 g/dl (32.0-35.9); MEAN CELL VOLUME 86.7 fl (80-96); MEAN PLT VOLUME 8.5 fl (7.5-11.1); PLATELET COUNT 228 K/MM3 (134-434); RBC 4.99 M/mm3 (4.00-5.60); RDW 17.1 % (11.9-15.9); WHITE BLOOD COUNT 5.4 K/mm3 (4.0-10.0)
[2020-07-04 11:53] LABS: POTASSIUM 4.2 mmol/L (3.5-5.1)
[2020-07-04 11:57] LABS: CALCIUM 9.1 mg/dL (8.5-10.1)
[2020-07-04 11:58] LABS: BLOOD UREA NITROGEN 26.9 mg/dL (7-18)
[2020-07-04 12:01] LABS: CREATININE 0.8 mg/dL (0.55-1.3)
[2020-07-04] MEDS ORDERED: CYCLOBENZAPRINE HCL 10 MG TABLET (FP) PO ONE (13:01)
[2020-07-04] MEDS: chlordiazePOXIDE HCL 25 MG CAPSULE PO PRN (17:01)
[2020-07-04] MEDS: CYCLOBENZAPRINE HCL 10 MG TABLET (FP) PO PRN ×2 (18:39→21:12)
[2020-07-04] MEDS: MELATONIN 5 MG TABLETS PO PRN (21:05)
[2020-07-04] MEDS ORDERED: MAG HYDROX/AL HYDROX/SIMETH 30 ML UNIT-DOSE CUP PO ONE (23:54)
[2020-07-05] MEDS: chlordiazePOXIDE HCL 25 MG CAPSULE PO PRN (02:01)
[2020-07-05] MEDS: GABAPENTIN 100 MG CAPSULE PO SCH ×3 (07:01→21:11)
[2020-07-05] MEDS: INSULIN SLIDING SCALE (NOVOLOG) 1 VIAL SQ SCH ×4 (07:02→21:21)
[2020-07-05 09:15] LABS: BASO % 0.6 % (0-2.0); EOS % 1.6 % (0-4.5); HEMOGLOBIN 13.4 GM/dL (11.7-16.9); LYMPH % 33.8 % (8-40); MCH 28.4 pg (25.7-33.7); MCHC 32.7 g/dl (32.0-35.9); MEAN CELL VOLUME 86.8 fl (80-96); MEAN PLT VOLUME 7.7 fl (7.5-11.1); MONO % 10.7 % (3.8-10.2); NEUT % 53.3 % (42.8-82.8); PLATELET COUNT 230 K/MM3 (134-434); RBC 4.73 M/mm3 (4.00-5.60); RDW 17.1 % (11.9-15.9); WHITE BLOOD COUNT 6.4 K/mm3 (4.0-10.0)
[2020-07-05 09:28] LABS: POTASSIUM 4.1 mmol/L (3.5-5.1)
[2020-07-05 09:43] LABS: PHOSPHOROUS 3.9 mg/dL (2.5-4.9)
[2020-07-05 09:44] LABS: BILIRUBIN,TOTAL 0.3 mg/dL (0.2-1)
[2020-07-05 09:46] LABS: TOT PROT 7.6 g/dl (6.4-8.2)
[2020-07-05 09:56] LABS: ALBUMIN 3.6 g/dl (3.4-5.0)
[2020-07-05 09:59] LABS: BLOOD UREA NITROGEN 21.5 mg/dL (7-18)
[2020-07-05 10:00] LABS: MAGNESIUM 2.3 mg/dL (1.8-2.4)
[2020-07-05] MEDS ORDERED: PT OWN MED DRAWER 7, Y5N ONE (10:33)
[2020-07-05] MEDS: MULTIVITAMINS (DAILY MVI) TABLET (FP) PO SCH (10:36)
[2020-07-05] MEDS: ENOXAPARIN NA (PORCINE) 40 MG/0.4 ML DISP.SYRIN SQ SCH (10:36)
[2020-07-05] MEDS: LOSARTAN POTASSIUM 50 MG TABLET PO SCH (10:36)
[2020-07-05] MEDS: levETIRAcetam 500 MG TABLET (FP) PO SCH ×2 (10:36→21:11)
[2020-07-05] MEDS: THIAMINE HCL 100 MG TABLET (FP) PO SCH (10:36)
[2020-07-05] MEDS: amLODIPine BESYLATE 10 MG TABLET (FP) PO SCH (10:36)
[2020-07-05] MEDS: CARVEDILOL 12.5 MG TABLET (FP) PO SCH ×2 (10:36→21:11)
[2020-07-05] MEDS: FOLIC ACID 1 MG TABLET (FP) PO SCH (10:36)
[2020-07-05] MEDS: CYCLOBENZAPRINE HCL 10 MG TABLET (FP) PO PRN ×2 (19:01→21:11)
[2020-07-05] MEDS: MELATONIN 5 MG TABLETS PO PRN (21:11)
[2020-07-06] MEDS ORDERED: INSULIN (NOVOLOG) ASPART 100 UNITS/ML 10ML VIAL ONE (05:24)
[2020-07-06] MEDS: GABAPENTIN 100 MG CAPSULE PO SCH (05:30)
[2020-07-06] MEDS: INSULIN SLIDING SCALE (NOVOLOG) 1 VIAL SQ SCH ×2 (06:22→11:21)
[2020-07-06] MEDS: amLODIPine BESYLATE 10 MG TABLET (FP) PO SCH (11:08)
[2020-07-06] MEDS: ENOXAPARIN NA (PORCINE) 40 MG/0.4 ML DISP.SYRIN SQ SCH (11:08)
[2020-07-06] MEDS: levETIRAcetam 500 MG TABLET (FP) PO SCH (11:08)
[2020-07-06] MEDS: MULTIVITAMINS (DAILY MVI) TABLET (FP) PO SCH (11:08)
[2020-07-06] MEDS: CARVEDILOL 12.5 MG TABLET (FP) PO SCH (11:08)
[2020-07-06] MEDS: FOLIC ACID 1 MG TABLET (FP) PO SCH (11:08)
[2020-07-06] MEDS: THIAMINE HCL 100 MG TABLET (FP) PO SCH (11:08)
[2020-07-06] MEDS: LOSARTAN POTASSIUM 50 MG TABLET PO SCH (11:09)
[2020-07-06 14:37] VITALS: BP 140/90; PULSE 82; TEMP 98
== END 2020-07-06 15:00 | disposition home or self-care (01) | DRG 100 ==
LOC: JER 12:46 → JERBED 19:40 → J8W 06-22 14:20
PROVIDERS: ADMIT Internal Medicine; ATTEND Internal Medicine
DX: R56.9 Unspecified convulsions (principal); U07.1 COVID-19; S32.048A Other fracture of fourth lumbar vertebra, initial encounter for closed fracture; S32.028A Other fracture of second lumbar vertebra, initial encounter for closed fracture; S32.038A Other fracture of third lumbar vertebra, initial encounter for closed fracture; F19.20 Other psychoactive substance dependence, uncomplicated; E46 Unspecified protein-calorie malnutrition; Q61.3 Polycystic kidney, unspecified; I10 Essential (primary) hypertension; F10.10 Alcohol abuse, uncomplicated; E88.09 Other disorders of plasma-protein metabolism, not elsewhere classified; Z68.20 Body mass index [BMI] 20.0-20.9, adult; W19.XXXA Unspecified fall, initial encounter; Y93.9 Activity, unspecified; Y92.89 Other specified places as the place of occurrence of the external cause; Y99.9 Unspecified external cause status; I16.0 Hypertensive urgency; E11.42 Type 2 diabetes mellitus with diabetic polyneuropathy; E78.5 Hyperlipidemia, unspecified; F17.210 Nicotine dependence, cigarettes, uncomplicated
CPT/HCPCS: 36415; 70450-TC; 71045-TC-FY; 72100-TC-FY; 72125-TC; 72128-TC; 72131-TC; 72141-TC; 72170-TC-FY; 80048; 80053; 80061; 80177; 80307; 81003; 82607; 82962; 83036; 83721; 83735; 84100; 84443; 84484; 85025; 85027; 93005; 93010; 93306-TC; 93880-TC; 93970-TC; 94761; 97116-GP; 97162-GP; 99285-25; C9803; J0131; U0003

== ENCOUNTER 2023-10-13 11:55 | Inpatient (IN) | payer OTHER ==
[2023-10-13 13:42] VITALS: BMI 28.3
[2023-10-13] MEDS ORDERED: MAG HYDROX/AL HYDROX/SIMETH 30 ML UNIT-DOSE CUP PO PRN (21:55)
[2023-10-13] MEDS ORDERED: DICYCLOMINE HCL 10 MG CAPSULE PO PRN (21:55)
[2023-10-13] MEDS ORDERED: guaiFENesin 600 MG TABLET.ER (FP) PO PRN (21:55)
[2023-10-13] MEDS ORDERED: NALOXONE HCL (KLOXXADO) 8 MG SPRAY NS PRN (21:55)
[2023-10-13] MEDS ORDERED: NALOXONE HCL 0.4 MG/ML VIAL IM PRN (21:55)
[2023-10-13] MEDS ORDERED: NICOTINE POLACRILEX 4 MG GUM BUC PRN (21:55)
[2023-10-13] MEDS ORDERED: BISMUTH SUBSALICYLATE 524 MG/30 ML PO PRN (21:55)
[2023-10-13] MEDS ORDERED: BENZOCAINE/MENTHOL (CHLORASEPTIC ) LOZENGE MM PRN (21:55)
[2023-10-13] MEDS ORDERED: LOPERAMIDE HCL 2 MG CAPSULE PO PRN (21:55)
[2023-10-13] MEDS ORDERED: IBUPROFEN 400 MG TABLET (FP) PO PRN (21:55)
[2023-10-13] MEDS ORDERED: BENZONATATE 200 MG CAPSULE PO PRN (21:55)
[2023-10-13] MEDS ORDERED: POLYETHYLENE GLYCOL (HEALTHYLAX) 3350 17 GM PACKET PO PRN (21:55)
[2023-10-13] MEDS ORDERED: ACETAMINOPHEN 325 MG TABLET (FP) PO PRN (21:55)
[2023-10-13] MEDS ORDERED: MAGNESIUM HYDROX 2400MG/30ML ORAL SUSPENSION 30 ML CUP PO PRN (21:55)
[2023-10-13] MEDS ORDERED: methaDONE HCL 10 MG TABLET (FOR DETOX USE ONLY) ONE (22:31)
[2023-10-13] MEDS ORDERED: diazePAM 5 MG TABLET ONE ×2 (22:31→22:41)
[2023-10-13] MEDS: methaDONE HCL 10 MG TABLET (FOR DETOX USE ONLY) PO ONE (22:34)
[2023-10-13] MEDS: diazePAM 5 MG TABLET PO PRN (22:40)
[2023-10-13] MEDS: MELATONIN 5 MG TABLETS PO SCH (23:05)
[2023-10-13] MEDS: THIAMINE HCL 100 MG TABLET (FP) PO SCH (23:05)
[2023-10-14] MEDS: diazePAM 5 MG TABLET PO SCH (06:15)
[2023-10-14] MEDS: metFORMIN HCL 500 MG TABLET (FP) PO SCH (06:20)
[2023-10-14] MEDS: amLODIPine BESYLATE 10 MG TABLET (FP) PO SCH (10:37)
[2023-10-14] MEDS: PRENATAL VITAMINS W/ FOLIC ACID TABLET (FP) PO SCH (10:37)
[2023-10-14] MEDS: NICOTINE 14 MG/24 HOURS TOPICAL PATCH TD SCH (10:37)
[2023-10-14] MEDS: methaDONE HCL 10 MG TABLET (FOR DETOX USE ONLY) PO ONE (10:37)
[2023-10-14 15:00] LABS: CHLORIDE 107 mmol/L (98-107); POTASSIUM 3.1 mmol/L (3.5-5.1); SODIUM 140 mmol/L (136-145)
[2023-10-14 15:04] LABS: HEMATOCRIT 39.2 % (35.4-49); HEMOGLOBIN 13.5 GM/dL (11.7-16.9); MCH 33.1 pg (25.7-33.7); MCHC 34.3 g/dl (32.0-35.9); MEAN CELL VOLUME 96.5 fl (80-96); MEAN PLT VOLUME 7.7 fl (7.5-11.1); PLATELET COUNT 280 10^3/uL (134-434); RBC 4.07 M/mm3 (4.00-5.60); RDW 13.4 % (11.9-15.9); WHITE BLOOD COUNT 6.4 K/mm3 (4.0-10.0)
[2023-10-14 15:05] LABS: ALBUMIN 3.6 g/dl (3.4-5.0); ANION GAP 10 mmol/L (4-13); BLOOD UREA NITROGEN 33.6 mg/dL (7-18); CO2 24 mmol/L (21-32); GLUCOSE,RANDOM 111 mg/dL (74-106)
[2023-10-14 15:08] LABS: CREATININE 1.7 mg/dL (0.55-1.3); SGPT/ALT 19 U/L (13-61)
[2023-10-14 15:09] LABS: SGOT/AST 9 U/L (15-37)
[2023-10-14 15:10] LABS: BILIRUBIN,TOTAL 0.5 mg/dL (0.2-1); TOT PROT 6.8 g/dl (6.4-8.2)
[2023-10-14 15:11] LABS: ALK PHOS 60 U/L (45-117)
[2023-10-15] MEDS: diazePAM 5 MG TABLET PO SCH (05:40)
[2023-10-15] MEDS: IBUPROFEN 600 MG TABLET (FP) PO PRN (05:41)
[2023-10-15] MEDS: POTASSIUM CHLORIDE ORAL LIQUID 20 MEQ/15 ML PO ONE (12:44)
[2023-10-15] MEDS: POTASSIUM CHLORIDE TABS 20 MEQ TABLET.ER (FP) PO ONE (16:58)
[2023-10-15] MEDS: cloNIDine HCL 0.1 MG TABLET PO PRN (21:50)
[2023-10-16] MEDS: diazePAM 5 MG TABLET PO ONE (05:25)
[2023-10-16] MEDS: methaDONE HCL 10 MG TABLET (FOR DETOX USE ONLY) PO ONE (10:11)
[2023-10-16 12:00] LABS: POTASSIUM 4.2 mmol/L (3.5-5.1)
[2023-10-16 12:07] LABS: CALCIUM 9.2 mg/dL (8.5-10.1)
[2023-10-16 12:08] LABS: BLOOD UREA NITROGEN 17.5 mg/dL (7-18)
[2023-10-16 12:10] LABS: CREATININE 1.1 mg/dL (0.55-1.3)
[2023-10-17] MEDS ORDERED: INSULIN ASPART SLIDING SCALE (NOVOLOG) 1 VIAL SQ ONE (01:01)
[2023-10-17 12:45] VITALS: BP 144/90; PULSE 73; RESP 18; TEMP 98.7
== END 2023-10-17 14:35 | disposition other institution (70) | DRG 897 ==
LOC: YASAS 11:55 → Y3N 22:26
PROVIDERS: ADMIT Allergy & Immunology; ATTEND Surgery
PROC: HZ2ZZZZ Detoxification Services for Substance Abuse Treatment (ICD-10-PCS; principal; 2023-10-13)
DX: F11.23 Opioid dependence with withdrawal (principal); F14.20 Cocaine dependence, uncomplicated; F10.230 Alcohol dependence with withdrawal, uncomplicated; F41.9 Anxiety disorder, unspecified; F32.A Depression, unspecified; I10 Essential (primary) hypertension; E78.5 Hyperlipidemia, unspecified; E87.6 Hypokalemia; E11.9 Type 2 diabetes mellitus without complications; Z79.84 Long term (current) use of oral hypoglycemic drugs; R79.89 Other specified abnormal findings of blood chemistry; M16.12 Unilateral primary osteoarthritis, left hip; Z99.89 Dependence on other enabling machines and devices
CPT/HCPCS: 36415; 80048; 80053; 80305; 80307; 82962; 85027; 86780; 87811; 93005; 93010

== ENCOUNTER 2023-10-17 14:42 | Inpatient (IN) | payer OTHER ==
[2023-10-17] MEDS ORDERED: POLYETHYLENE GLYCOL (HEALTHYLAX) 3350 17 GM PACKET PO PRN (15:57)
[2023-10-17] MEDS ORDERED: AMMONIUM LACTATE 12% LOTION 225 GM BOTTLE TP PRN (15:57)
[2023-10-17] MEDS ORDERED: MAGNESIUM HYDROX 2400MG/30ML ORAL SUSPENSION 30 ML CUP PO PRN (15:57)
[2023-10-17] MEDS ORDERED: NALOXONE HCL 0.4 MG/ML VIAL IVPUSH PRN (15:57)
[2023-10-17] MEDS ORDERED: NALOXONE HCL (KLOXXADO) 8 MG SPRAY NS PRN (15:57)
[2023-10-17] MEDS ORDERED: BENZONATATE 200 MG CAPSULE PO PRN (15:57)
[2023-10-17] MEDS ORDERED: IBUPROFEN 400 MG TABLET (FP) PO PRN (15:57)
[2023-10-17] MEDS ORDERED: NICOTINE 14 MG/24 HOURS TOPICAL PATCH TD PRN (15:57)
[2023-10-17] MEDS ORDERED: MAG HYDROX/AL HYDROX/SIMETH 30 ML UNIT-DOSE CUP PO PRN (15:57)
[2023-10-17] MEDS ORDERED: ACETAMINOPHEN 325 MG TABLET (FP) PO PRN (15:57)
[2023-10-17] MEDS ORDERED: LOPERAMIDE HCL 2 MG CAPSULE PO PRN (15:57)
[2023-10-17] MEDS ORDERED: guaiFENesin 600 MG TABLET.ER (FP) PO PRN (15:57)
[2023-10-17] MEDS: IBUPROFEN 600 MG TABLET (FP) PO PRN (16:28)
[2023-10-17] MEDS: INSULIN ASPART SLIDING SCALE (NOVOLOG) 1 VIAL SQ SCH (16:28)
[2023-10-17] MEDS: THIAMINE HCL 100 MG TABLET (FP) PO SCH (21:16)
[2023-10-17] MEDS: MELATONIN 5 MG TABLETS PO SCH (21:16)
[2023-10-18] MEDS: metFORMIN HCL 500 MG TABLET (FP) PO SCH (06:10)
[2023-10-18] MEDS: PRENATAL VITAMINS W/ FOLIC ACID TABLET (FP) PO SCH (09:48)
[2023-10-18] MEDS: FOLIC ACID 1 MG TABLET (FP) PO SCH (09:48)
[2023-10-18] MEDS: amLODIPine BESYLATE 10 MG TABLET (FP) PO SCH (09:48)
[2023-10-18] MEDS ORDERED: BUPRENORPHINE HCL 150 MCG, BUPRENORPHINE HCL 75 MCG BC PRN (11:55)
[2023-10-18] MEDS ORDERED: diazePAM 5 MG TABLET PO PRN (11:55)
[2023-10-18] MEDS: cloNIDine HCL 0.1 MG TABLET PO ONE ×2 (12:37→12:38)
[2023-10-18] MEDS: BUPRENORPHINE HCL 150 MCG, BUPRENORPHINE HCL 75 MCG BC ONE (12:54)
[2023-10-18] MEDS ORDERED: cloNIDine HCL 0.1 MG TABLET PO PRN (15:55)
[2023-10-19] MEDS ORDERED: BUPRENORPHINE HCL 150 MCG, BUPRENORPHINE HCL 75 MCG BC PRN
[2023-10-19] MEDS: BUPRENORPHINE HCL 150 MCG, BUPRENORPHINE HCL 75 MCG BC SCH (06:15)
[2023-10-19] MEDS: hydrOXYzine PAMOATE 25 MG CAPSULE (FP) PO PRN (21:12)
[2023-10-19] MEDS: METHOCARBAMOL 500 MG TABLET PO PRN (21:12)
[2023-10-20] MEDS: BUPRENORPHINE HCL 450 MCG FILM BC SCH (06:16)
[2023-10-21] MEDS: BENZOCAINE/MENTHOL (CHLORASEPTIC ) LOZENGE MM PRN (06:07)
[2023-10-22] MEDS: ACETAMINOPHEN 325 MG TABLET (FP) PO PRN (09:45)
[2023-10-23 12:04] LABS: INR 1.15 (0.83-1.09); PROTHROMBIN TIME (PATIENT) 13.3 SEC (9.7-13.0)
[2023-10-23 12:06] LABS: MAGNESIUM 2.2 mg/dL (1.8-2.4)
[2023-10-26] MEDS: SUVOREXANT 10 MG TABLET PO PRN (21:19)
[2023-10-27 07:16] VITALS: TEMP 97.5
[2023-10-27 09:13] VITALS: BP 114/87; PULSE 90; RESP 18
== END 2023-10-27 09:32 | disposition home or self-care (01) | DRG 895 ==
LOC: YASAS 14:42 → Y3W 14:44
PROVIDERS: ADMIT Allergy & Immunology; ATTEND Psychiatry & Neurology Pain Medicine
PROC: HZ42ZZZ Group Counseling for Substance Abuse Treatment, Cognitive-Behavioral (ICD-10-PCS; principal; 2023-10-17)
DX: F11.20 Opioid dependence, uncomplicated (principal); F14.20 Cocaine dependence, uncomplicated; F19.282 Other psychoactive substance dependence with psychoactive substance-induced sleep disorder; E72.20 Disorder of urea cycle metabolism, unspecified; F10.20 Alcohol dependence, uncomplicated; F17.210 Nicotine dependence, cigarettes, uncomplicated; F41.9 Anxiety disorder, unspecified; F32.A Depression, unspecified; G47.00 Insomnia, unspecified; I10 Essential (primary) hypertension; E78.5 Hyperlipidemia, unspecified; E11.9 Type 2 diabetes mellitus without complications; Z79.84 Long term (current) use of oral hypoglycemic drugs; M16.12 Unilateral primary osteoarthritis, left hip; Z99.89 Dependence on other enabling machines and devices; Z91.81 History of falling; Z91.89 Other specified personal risk factors, not elsewhere classified
CPT/HCPCS: 36415; 82140; 82607; 82652; 82746; 82962; 83735; 85610; 86803; 87522

== ENCOUNTER 2024-01-20 16:42 | Inpatient (IN) | payer OTHER ==
[2024-01-20] MEDS: diazePAM 5 MG TABLET PO SCH (17:00)
[2024-01-20 18:29] VITALS: BMI 25.8
[2024-01-20] MEDS ORDERED: diazePAM 5 MG TABLET PO PRN (21:15)
[2024-01-20] MEDS ORDERED: guaiFENesin 600 MG TABLET.ER (FP) PO PRN (21:17)
[2024-01-20] MEDS ORDERED: BENZONATATE 200 MG CAPSULE PO PRN (21:17)
[2024-01-20] MEDS ORDERED: NALOXONE (NARCAN) HCL 4 MG/0.1 ML SPRAY NS PRN (21:17)
[2024-01-20] MEDS ORDERED: LOPERAMIDE HCL 2 MG CAPSULE PO PRN (21:17)
[2024-01-20] MEDS ORDERED: IBUPROFEN 600 MG TABLET (FP) PO PRN (21:17)
[2024-01-20] MEDS ORDERED: IBUPROFEN 400 MG TABLET (FP) PO PRN (21:17)
[2024-01-20] MEDS ORDERED: NICOTINE POLACRILEX 4 MG LOZENGE BC PRN (21:17)
[2024-01-20] MEDS ORDERED: hydrOXYzine PAMOATE 25 MG CAPSULE (FP) PO PRN (21:17)
[2024-01-20] MEDS ORDERED: POLYETHYLENE GLYCOL (HEALTHYLAX) 3350 17 GM PACKET PO PRN (21:17)
[2024-01-20] MEDS ORDERED: MAGNESIUM HYDROX 2400MG/30ML ORAL SUSPENSION 30 ML CUP PO PRN (21:17)
[2024-01-20] MEDS ORDERED: BISMUTH SUBSALICYLATE 524 MG/30 ML PO PRN (21:17)
[2024-01-20] MEDS ORDERED: NALOXONE HCL 0.4 MG/ML VIAL IM PRN (21:17)
[2024-01-20] MEDS ORDERED: DICYCLOMINE HCL 10 MG CAPSULE PO PRN (21:17)
[2024-01-20] MEDS ORDERED: NICOTINE POLACRILEX 4 MG GUM BUC PRN (21:17)
[2024-01-20] MEDS ORDERED: BENZOCAINE/MENTHOL (CHLORASEPTIC ) LOZENGE MM PRN (21:17)
[2024-01-20] MEDS ORDERED: MAG HYDROX/AL HYDROX/SIMETH 30 ML UNIT-DOSE CUP PO PRN (21:17)
[2024-01-20] MEDS ORDERED: ONDANSETRON *ODT* 4 MG TABLET SL PRN (21:17)
[2024-01-20] MEDS ORDERED: LOSARTAN POTASSIUM 50 MG TABLET PO SCH (21:30)
[2024-01-20] MEDS ORDERED: diazePAM 5 MG TABLET ONE (21:42)
[2024-01-20] MEDS: diazePAM 5 MG TABLET PO ONE (21:46)
[2024-01-20] MEDS: NICOTINE 7 MG/24 HOURS TOPICAL PATCH TD SCH (21:46)
[2024-01-20] MEDS: methaDONE HCL 10 MG TABLET (FOR DETOX USE ONLY) PO ONE (21:47)
[2024-01-20] MEDS ORDERED: methaDONE HCL 10 MG TABLET (FOR DETOX USE ONLY) ONE (21:49)
[2024-01-20] MEDS: METHOCARBAMOL 500 MG TABLET PO PRN (22:41)
[2024-01-20] MEDS: MELATONIN 5 MG TABLETS PO SCH (22:41)
[2024-01-20] MEDS: THIAMINE 100 MG TABLET PO SCH (22:41)
[2024-01-20] MEDS: metFORMIN HCL 500 MG TABLET (FP) PO SCH (22:41)
[2024-01-20] MEDS: cloNIDine HCL 0.1 MG TABLET PO PRN (22:41)
[2024-01-21] MEDS: INSULIN ASPART SLIDING SCALE (NOVOLOG) 1 VIAL SQ SCH (06:05)
[2024-01-21] MEDS: amLODIPine BESYLATE 10 MG TABLET (FP) PO SCH (10:25)
[2024-01-21] MEDS: PRENATAL VITAMINS W/ FOLIC ACID TABLET (FP) PO SCH (10:26)
[2024-01-21] MEDS ORDERED: INSULIN (NOVOLOG) ASPART 100 UNITS/ML 10ML VIAL ONE (16:35)
[2024-01-22] MEDS: diazePAM 5 MG TABLET PO SCH (05:33)
[2024-01-22] MEDS ORDERED: TRIMETHOBENZAMIDE HCL 200MG/2ML INJ IM PRN (09:25)
[2024-01-22] MEDS: methaDONE HCL 10 MG TABLET (FOR DETOX USE ONLY) PO ONE (09:49)
[2024-01-22] MEDS: FAMOTIDINE 20 MG TABLET PO SCH (10:48)
[2024-01-22] MEDS: CARVEDILOL 12.5 MG TABLET (FP) PO SCH (11:05)
[2024-01-22] MEDS: LOSARTAN POTASSIUM 50 MG TABLET PO SCH (11:06)
[2024-01-22] MEDS: methaDONE HCL 10 MG TABLET PO ONE (12:27)
[2024-01-23] MEDS: diazePAM 5 MG TABLET PO SCH ×2 (05:38→17:41)
[2024-01-23] MEDS ORDERED: methaDONE HCL 10 MG TABLET PO ONE (10:00)
[2024-01-23] MEDS: ACETAMINOPHEN 325 MG TABLET (FP) PO PRN (20:03)
[2024-01-24] MEDS ORDERED: diazePAM 5 MG TABLET PO ONE (06:00)
[2024-01-24] MEDS: diazePAM 5 MG TABLET PO ONE (06:08)
[2024-01-24 06:26] VITALS: RESP 16
[2024-01-24] MEDS: ISOSORBIDE MONONITRATE 10 MG TABLET PO SCH (08:12)
[2024-01-24] MEDS: CARVEDILOL 25 MG TABLET (FP) PO SCH (09:53)
[2024-01-24] MEDS: SPIRONOLACTONE 25 MG TABLET PO SCH (09:53)
[2024-01-24] MEDS ORDERED: methaDONE HCL 10 MG TABLET (FOR DETOX USE ONLY) PO ONE (10:00)
[2024-01-24] MEDS ORDERED: methaDONE HCL 10 MG TABLET PO ONE (10:00)
[2024-01-24] MEDS: GABAPENTIN 100 MG CAPSULE PO SCH (14:09)
[2024-01-25] MEDS: EMPAGLIFLOZIN (JARDIANCE) 25 MG TABLET PO SCH (06:36)
[2024-01-25 14:13] VITALS: BP 123/61; PULSE 74; TEMP 97.8
== END 2024-01-25 14:07 | disposition home or self-care (01) | DRG 897 ==
LOC: SUATTDRO 16:42 → YASAS 16:42 → Y6N 21:50
PROVIDERS: ADMIT Allergy & Immunology; ATTEND Surgery
PROC: HZ2ZZZZ Detoxification Services for Substance Abuse Treatment (ICD-10-PCS; principal; 2024-01-20)
DX: F11.23 Opioid dependence with withdrawal (principal); F14.20 Cocaine dependence, uncomplicated; F19.282 Other psychoactive substance dependence with psychoactive substance-induced sleep disorder; F19.20 Other psychoactive substance dependence, uncomplicated; F10.230 Alcohol dependence with withdrawal, uncomplicated; F17.210 Nicotine dependence, cigarettes, uncomplicated; F19.24 Other psychoactive substance dependence with psychoactive substance-induced mood disorder; I10 Essential (primary) hypertension; E78.5 Hyperlipidemia, unspecified; K21.9 Gastro-esophageal reflux disease without esophagitis; E11.9 Type 2 diabetes mellitus without complications; Z79.84 Long term (current) use of oral hypoglycemic drugs; M16.12 Unilateral primary osteoarthritis, left hip; Z99.89 Dependence on other enabling machines and devices; Z98.2 Presence of cerebrospinal fluid drainage device; R41.82 Altered mental status, unspecified; T50.904A Poisoning by unspecified drugs, medicaments and biological substances, undetermined, initial encounter; Y92.238 Other place in hospital as the place of occurrence of the external cause
CPT/HCPCS: 80305; 80307; 82962; 93005; 93010

== ENCOUNTER 2024-01-21 01:53 | Emergency (ER) | payer OTHER ==
[2024-01-21 02:01] VITALS: TEMP 98.5; BMI 25.8
[2024-01-21] MEDS ORDERED: NALOXONE HCL 0.4 MG/ML VIAL ONE (02:12)
[2024-01-21] MEDS: NALOXONE HCL 0.4 MG/ML VIAL IVPUSH ONE (02:17)
[2024-01-21 05:37] LABS: BASO % 0.4 % (0-2.0); EOS % 4.4 % (0-4.5); HEMOGLOBIN 12.4 GM/dL (11.7-16.9); LYMPH % 24.7 % (8-40); MCH 32.2 pg (25.7-33.7); MCHC 34.4 g/dl (32.0-35.9); MEAN CELL VOLUME 93.6 fl (80-96); MEAN PLT VOLUME 7.1 fl (7.5-11.1); NEUT % 53.5 % (42.8-82.8); PLATELET COUNT 241 10^3/uL (134-434); RBC 3.85 M/mm3 (4.00-5.60); RDW 14.2 % (11.9-15.9); WHITE BLOOD COUNT 7.7 K/mm3 (4.0-10.0)
[2024-01-21 05:56] LABS: POTASSIUM 3.2 mmol/L (3.5-5.1)
[2024-01-21 05:58] LABS: CALCIUM 8.4 mg/dL (8.5-10.1)
[2024-01-21 05:59] LABS: ALBUMIN 3.2 g/dl (3.4-5.0); BLOOD UREA NITROGEN 11.6 mg/dL (7-18)
[2024-01-21 06:02] LABS: CREATININE 0.9 mg/dL (0.55-1.3)
[2024-01-21 06:03] LABS: BILIRUBIN,TOTAL 0.5 mg/dL (0.2-1); TOT PROT 6.2 g/dl (6.4-8.2)
[2024-01-21] MEDS ORDERED: POTASSIUM CHLORIDE ORAL LIQUID 20 MEQ/15 ML ONE (06:07)
[2024-01-21] MEDS: POTASSIUM CHLORIDE ORAL LIQUID 20 MEQ/15 ML PO ONE ×2 (06:13→06:41)
[2024-01-21 13:32] VITALS: BP 123/79; PULSE 64; RESP 20
== END 2024-01-21 13:57 | disposition home or self-care (01) ==
LOC: JER 01:53
PROC: 3E033NZ Introduction of Analgesics, Hypnotics, Sedatives into Peripheral Vein, Percutaneous Approach (ICD-10-PCS; principal; 2024-01-21)
DX: F19.10 Other psychoactive substance abuse, uncomplicated (principal); R41.0 Disorientation, unspecified
CPT/HCPCS: 36415; 70260-TC-FY; 70450-TC; 71045-TC-FY; 72050-TC-FY; 74018-TC-FY; 80053; 82962; 85025; 93005; 93010; 96374; 99285-25

== ENCOUNTER 2024-03-22 14:35 | Inpatient (IN) | payer OTHER ==
[2024-03-22 15:37] VITALS: BMI 21.9
[2024-03-22 19:23] VITALS: BP 183/96; PULSE 65; RESP 16; TEMP 97.8
[2024-03-22] MEDS ORDERED: cloNIDine HCL 0.1 MG TABLET ONE (19:25)
[2024-03-22] MEDS: cloNIDine HCL 0.1 MG TABLET PO ONE (19:26)
== END 2024-03-22 23:50 | disposition short-term general hospital (02) | DRG 895 ==
LOC: YASAS 14:35 → Y5N 19:13 → Y3W 19:54
PROVIDERS: ADMIT Allergy & Immunology; ATTEND Psychiatry & Neurology Pain Medicine
PROC: HZ42ZZZ Group Counseling for Substance Abuse Treatment, Cognitive-Behavioral (ICD-10-PCS; principal; 2024-03-22)
DX: F14.20 Cocaine dependence, uncomplicated (principal); F11.20 Opioid dependence, uncomplicated; F17.210 Nicotine dependence, cigarettes, uncomplicated; F12.20 Cannabis dependence, uncomplicated; F41.9 Anxiety disorder, unspecified; F32.A Depression, unspecified; I10 Essential (primary) hypertension; E78.5 Hyperlipidemia, unspecified; E11.9 Type 2 diabetes mellitus without complications; Z79.84 Long term (current) use of oral hypoglycemic drugs; M16.11 Unilateral primary osteoarthritis, right hip; Z99.89 Dependence on other enabling machines and devices
CPT/HCPCS: 80305; 82962; 87811

== ENCOUNTER 2024-03-22 20:14 | Observation (INO) | payer OTHER ==
[2024-03-22 23:26] LABS: BASO % 0.2 % (0-2.0); EOS % 2.6 % (0-4.5); HEMATOCRIT 33.4 % (35.4-49); HEMOGLOBIN 11.1 GM/dL (11.7-16.9); LYMPH % 17.3 % (8-40); MCH 30.2 pg (25.7-33.7); MCHC 33.2 g/dl (32.0-35.9); MEAN CELL VOLUME 91.2 fl (80-96); MEAN PLT VOLUME 7.5 fl (7.5-11.1); NEUT % 68.9 % (42.8-82.8); PLATELET COUNT 316 10^3/uL (134-434); RBC 3.66 M/mm3 (4.00-5.60); RDW 14.3 % (11.9-15.9); WHITE BLOOD COUNT 7.8 K/mm3 (4.0-10.0)
[2024-03-22] MEDS ORDERED: DALBAVANCIN HCL 500 MG VIAL (RESTRICTED TO ID ONLY) IVPB ONE (23:36)
[2024-03-23] MEDS: DALBAVANCIN HCL 1,500 MG in DEXTROSE 5%-WATER - 500 ML IVPB ONE (00:38)
[2024-03-23 01:02] LABS: POTASSIUM 3.5 mmol/L (3.5-5.1)
[2024-03-23 01:04] LABS: CALCIUM 8.8 mg/dL (8.5-10.1)
[2024-03-23 01:05] LABS: ALBUMIN 2.9 g/dl (3.4-5.0); BLOOD UREA NITROGEN 18.9 mg/dL (7-18)
[2024-03-23 01:08] LABS: CREATININE 0.9 mg/dL (0.55-1.3)
[2024-03-23 01:09] LABS: BILIRUBIN,TOTAL 0.3 mg/dL (0.2-1); TOT PROT 8.1 g/dl (6.4-8.2)
[2024-03-23] MEDS: CARVEDILOL 25 MG TABLET (FP) PO SCH (10:13)
[2024-03-23] MEDS: amLODIPine BESYLATE 10 MG TABLET (FP) PO SCH (10:13)
[2024-03-23] MEDS: LOSARTAN POTASSIUM 50 MG TABLET PO SCH (10:13)
[2024-03-23] MEDS: THIAMINE 100 MG TABLET PO SCH (10:13)
[2024-03-23] MEDS: FOLIC ACID 1 MG TABLET (FP) PO SCH (10:13)
[2024-03-23] MEDS: NICOTINE 14 MG/24 HOURS TOPICAL PATCH TD SCH (10:14)
[2024-03-23] MEDS: ENOXAPARIN NA (PORCINE) 40 MG/0.4 ML DISP.SYRIN SQ SCH (10:14)
[2024-03-23 10:48] VITALS: BMI 21.8
[2024-03-23] MEDS: LORazepam 1 MG TABLET PO SCH (11:44)
[2024-03-23] MEDS: INSULIN ASPART SLIDING SCALE (NOVOLOG) 1 VIAL SQ SCH (11:46)
[2024-03-23 13:39] LABS: BASO % 0.4 % (0-2.0); EOS % 3.1 % (0-4.5); HEMOGLOBIN 11.6 GM/dL (11.7-16.9); LYMPH % 26.6 % (8-40); MCH 29.9 pg (25.7-33.7); MCHC 33.1 g/dl (32.0-35.9); MEAN CELL VOLUME 90.3 fl (80-96); MEAN PLT VOLUME 7.3 fl (7.5-11.1); MONO % 11.8 % (3.8-10.2); NEUT % 58.1 % (42.8-82.8); PLATELET COUNT 328 10^3/uL (134-434); RBC 3.88 M/mm3 (4.00-5.60); RDW 14.1 % (11.9-15.9); WHITE BLOOD COUNT 6.8 K/mm3 (4.0-10.0)
[2024-03-23 14:06] LABS: POTASSIUM 3.8 mmol/L (3.5-5.1)
[2024-03-23 14:08] LABS: CALCIUM 8.6 mg/dL (8.5-10.1); MAGNESIUM 2.5 mg/dL (1.8-2.4)
[2024-03-23 14:09] LABS: ALBUMIN 2.6 g/dl (3.4-5.0)
[2024-03-23 14:12] LABS: PHOSPHOROUS 3.3 mg/dL (2.5-4.9)
[2024-03-23 14:13] LABS: CREATININE 0.9 mg/dL (0.55-1.3)
[2024-03-23 14:14] LABS: BILIRUBIN,TOTAL 0.2 mg/dL (0.2-1); TOT PROT 7.5 g/dl (6.4-8.2)
[2024-03-23] MEDS: GABAPENTIN 100 MG CAPSULE PO SCH (14:23)
[2024-03-24 08:43] LABS: BASO % 0.4 % (0-2.0); HEMATOCRIT 33.9 % (35.4-49); HEMOGLOBIN 11.6 GM/dL (11.7-16.9); LYMPH % 24.9 % (8-40); MCH 30.5 pg (25.7-33.7); MCHC 34.1 g/dl (32.0-35.9); MEAN CELL VOLUME 89.3 fl (80-96); MEAN PLT VOLUME 6.9 fl (7.5-11.1); MONO % 12.4 % (3.8-10.2); NEUT % 59.3 % (42.8-82.8); PLATELET COUNT 324 10^3/uL (134-434); RBC 3.79 M/mm3 (4.00-5.60); RDW 14.1 % (11.9-15.9); WHITE BLOOD COUNT 6.3 K/mm3 (4.0-10.0)
[2024-03-24 09:06] LABS: POTASSIUM 3.6 mmol/L (3.5-5.1)
[2024-03-24 09:11] LABS: CALCIUM 8.5 mg/dL (8.5-10.1)
[2024-03-24 09:12] LABS: BLOOD UREA NITROGEN 16.4 mg/dL (7-18)
[2024-03-24 09:15] LABS: CREATININE 0.9 mg/dL (0.55-1.3)
[2024-03-24] MEDS: FAMOTIDINE 20 MG TABLET PO SCH (13:38)
[2024-03-24] MEDS: EMPAGLIFLOZIN (JARDIANCE) 25 MG TABLET PO SCH (13:38)
[2024-03-25] MEDS: LORazepam 1 MG TABLET PO SCH (05:47)
[2024-03-25 10:20] LABS: BASO % 0.3 % (0-2.0); EOS % 3.2 % (0-4.5); HEMATOCRIT 33.6 % (35.4-49); HEMOGLOBIN 11.6 GM/dL (11.7-16.9); LYMPH % 26.1 % (8-40); MCH 30.7 pg (25.7-33.7); MCHC 34.3 g/dl (32.0-35.9); MEAN CELL VOLUME 89.3 fl (80-96); MEAN PLT VOLUME 6.9 fl (7.5-11.1); MONO % 12.6 % (3.8-10.2); NEUT % 57.8 % (42.8-82.8); PLATELET COUNT 310 10^3/uL (134-434); RBC 3.77 M/mm3 (4.00-5.60); RDW 13.9 % (11.9-15.9); WHITE BLOOD COUNT 6.4 K/mm3 (4.0-10.0)
[2024-03-25 10:24] LABS: POTASSIUM 3.7 mmol/L (3.5-5.1)
[2024-03-25 10:28] LABS: CALCIUM 8.7 mg/dL (8.5-10.1)
[2024-03-25 10:30] LABS: BLOOD UREA NITROGEN 18.2 mg/dL (7-18)
[2024-03-25] MEDS: KETOROLAC TROMETHAMINE 30 MG/1 ML VIAL IVPUSH ONE (11:15)
[2024-03-25] MEDS: LORazepam 1 MG TABLET PO PRN (14:59)
[2024-03-25 15:02] VITALS: BP 147/93; PULSE 72; RESP 18; TEMP 98.2
[2024-03-25] MEDS: methaDONE HCL 10 MG TABLET PO ONE (18:02)
[2024-03-26] MEDS ORDERED: LORazepam 0.5 MG TABLET PO PRN
[2024-03-26] MEDS ORDERED: LORazepam 0.5 MG TABLET PO SCH (05:00)
[2024-03-27] MEDS ORDERED: LORazepam 0.5 MG TABLET PO ONE (05:00)
== END 2024-03-25 18:50 | disposition left against medical advice (07) ==
LOC: JER 20:14 → JERBED 03-23 04:38 → UNDOADMOB 03-23 04:38 → INTOOBSV 03-23 06:03 → OBSVTOIN 03-23 06:03 → J6S 03-23 07:48 → JERBED 03-23 07:48 → J6S 03-24 12:23
PROVIDERS: ADMIT Internal Medicine; ATTEND Nurse Practitioner
PROC: 3E03329 Introduction of Other Anti-infective into Peripheral Vein, Percutaneous Approach (ICD-10-PCS; principal; 2024-03-24)
PROC: 3E023GC Introduction of Other Therapeutic Substance into Muscle, Percutaneous Approach (ICD-10-PCS; 2024-03-24)
PROC: 3E0333Z Introduction of Anti-inflammatory into Peripheral Vein, Percutaneous Approach (ICD-10-PCS; 2024-03-24)
DX: E78.5 Hyperlipidemia, unspecified (principal); R00.1 Bradycardia, unspecified; I45.81 Long QT syndrome; F19.90 Other psychoactive substance use, unspecified, uncomplicated; D64.9 Anemia, unspecified; E11.9 Type 2 diabetes mellitus without complications; Z29.89 Encounter for other specified prophylactic measures; M19.90 Unspecified osteoarthritis, unspecified site
CPT/HCPCS: 36415; 73590-TC-LT-FY; 73630-TC-LT; 80048; 80053; 82728; 82962; 83036; 83540; 83550; 83735; 84100; 84466; 85025; 85045; 86140; 87040; 93005; 93010; 93971-TC; 96365; 96372; 96375; 97116-GP; 97162-GP; 99285-25; G0378; J0875

== ENCOUNTER 2024-04-09 18:23 | Inpatient (IN) | payer OTHER ==
[2024-04-09 21:49] VITALS: BMI 21.9
[2024-04-09] MEDS ORDERED: ACETAMINOPHEN 325 MG TABLET (FP) PO PRN (22:17)
[2024-04-09] MEDS ORDERED: MAGNESIUM HYDROX 2400MG/30ML ORAL SUSPENSION 30 ML CUP PO PRN (22:17)
[2024-04-09] MEDS ORDERED: ONDANSETRON *ODT* 4 MG TABLET SL PRN (22:17)
[2024-04-09] MEDS ORDERED: POLYETHYLENE GLYCOL (HEALTHYLAX) 3350 17 GM PACKET PO PRN (22:17)
[2024-04-09] MEDS ORDERED: guaiFENesin 600 MG TABLET.ER (FP) PO PRN (22:17)
[2024-04-09] MEDS ORDERED: LOPERAMIDE HCL 2 MG CAPSULE PO PRN (22:17)
[2024-04-09] MEDS ORDERED: BENZOCAINE/MENTHOL (CHLORASEPTIC ) LOZENGE MM PRN (22:17)
[2024-04-09] MEDS ORDERED: DICYCLOMINE HCL 10 MG CAPSULE PO PRN (22:17)
[2024-04-09] MEDS ORDERED: BENZONATATE 200 MG CAPSULE PO PRN (22:17)
[2024-04-09] MEDS ORDERED: NALOXONE (NARCAN) HCL 4 MG/0.1 ML SPRAY NS PRN (22:17)
[2024-04-09] MEDS ORDERED: MAG HYDROX/AL HYDROX/SIMETH 30 ML UNIT-DOSE CUP PO PRN (22:17)
[2024-04-09] MEDS ORDERED: BISMUTH SUBSALICYLATE 524 MG/30 ML PO PRN (22:17)
[2024-04-09] MEDS ORDERED: NALOXONE HCL 0.4 MG/ML VIAL IM PRN (22:17)
[2024-04-09] MEDS ORDERED: NICOTINE POLACRILEX 2 MG GUM BUC PRN (22:17)
[2024-04-09] MEDS ORDERED: IBUPROFEN 400 MG TABLET (FP) PO PRN (22:17)
[2024-04-09] MEDS ORDERED: amLODIPine BESYLATE 5 MG TABLET (FP) ONE ×2 (22:56)
[2024-04-09] MEDS: amLODIPine BESYLATE 10 MG TABLET (FP) PO ONE (22:59)
[2024-04-10] MEDS: CARVEDILOL 25 MG TABLET (FP) PO SCH (10:28)
[2024-04-10] MEDS: PRENATAL VITAMINS W/ FOLIC ACID TABLET (FP) PO SCH (10:28)
[2024-04-10] MEDS: LOSARTAN POTASSIUM 50 MG TABLET PO SCH (10:28)
[2024-04-10] MEDS: FAMOTIDINE 20 MG TABLET PO SCH (10:28)
[2024-04-10] MEDS: NICOTINE 14 MG/24 HOURS TOPICAL PATCH TD SCH (10:28)
[2024-04-10] MEDS: amLODIPine BESYLATE 10 MG TABLET (FP) PO SCH (10:28)
[2024-04-10] MEDS ORDERED: diazePAM 5 MG TABLET PO PRN (14:10)
[2024-04-10] MEDS: methaDONE HCL 10 MG TABLET (FOR DETOX USE ONLY) PO ONE (14:50)
[2024-04-10] MEDS: diazePAM 5 MG TABLET PO SCH (17:59)
[2024-04-10] MEDS: THIAMINE 100 MG TABLET PO SCH (23:26)
[2024-04-11] MEDS: IBUPROFEN 600 MG TABLET (FP) PO PRN (01:38)
[2024-04-11 11:35] LABS: HEMATOCRIT 34.8 % (35.4-49); HEMOGLOBIN 11.8 GM/dL (11.7-16.9); MCH 30.1 pg (25.7-33.7); MCHC 33.8 g/dl (32.0-35.9); MEAN PLT VOLUME 7.1 fl (7.5-11.1); PLATELET COUNT 334 10^3/uL (134-434); RBC 3.91 M/mm3 (4.00-5.60); RDW 14.6 % (11.9-15.9); WHITE BLOOD COUNT 5.3 K/mm3 (4.0-10.0)
[2024-04-11 13:14] LABS: POTASSIUM 3.7 mmol/L (3.5-5.1)
[2024-04-11 13:20] LABS: ALBUMIN 2.7 g/dl (3.4-5.0)
[2024-04-11 13:33] LABS: CALCIUM 8.9 mg/dL (8.5-10.1)
[2024-04-11 13:34] LABS: BLOOD UREA NITROGEN 14.8 mg/dL (7-18)
[2024-04-11 13:37] LABS: CREATININE 0.9 mg/dL (0.55-1.3)
[2024-04-11 13:39] LABS: BILIRUBIN,TOTAL 0.3 mg/dL (0.2-1); TOT PROT 7.5 g/dl (6.4-8.2)
[2024-04-12] MEDS: diazePAM 5 MG TABLET PO SCH (05:47)
[2024-04-12] MEDS: EMPAGLIFLOZIN (JARDIANCE) 25 MG TABLET PO SCH (06:16)
[2024-04-12] MEDS: methaDONE HCL 10 MG TABLET (FOR DETOX USE ONLY) PO ONE (10:28)
[2024-04-13] MEDS: diazePAM 5 MG TABLET PO SCH (05:49)
[2024-04-13 12:41] VITALS: RESP 16
[2024-04-14] MEDS: diazePAM 5 MG TABLET PO ONE (05:54)
[2024-04-14 08:42] VITALS: BP 144/80; PULSE 68; TEMP 97.9
== END 2024-04-14 09:55 | disposition other institution (70) | DRG 897 ==
LOC: YASAS 18:23 → Y3N 22:38
PROVIDERS: ADMIT Allergy & Immunology; ATTEND Surgery
PROC: HZ2ZZZZ Detoxification Services for Substance Abuse Treatment (ICD-10-PCS; principal; 2024-04-09)
DX: F11.23 Opioid dependence with withdrawal (principal); F10.230 Alcohol dependence with withdrawal, uncomplicated; F17.210 Nicotine dependence, cigarettes, uncomplicated; E11.9 Type 2 diabetes mellitus without complications; I10 Essential (primary) hypertension; K21.9 Gastro-esophageal reflux disease without esophagitis; M16.12 Unilateral primary osteoarthritis, left hip; Z99.89 Dependence on other enabling machines and devices
CPT/HCPCS: 36415; 80053; 80305; 80307; 82962; 85027; 86780; 93005; 93010

== ENCOUNTER 2024-06-14 17:45 | Inpatient (IN) | payer OTHER ==
[2024-06-14 19:01] VITALS: BMI 20.5
[2024-06-14] MEDS ORDERED: BENZOCAINE/MENTHOL (CHLORASEPTIC ) LOZENGE MM PRN (19:39)
[2024-06-14] MEDS ORDERED: NALOXONE (NARCAN) HCL 4 MG/0.1 ML SPRAY NS PRN (19:39)
[2024-06-14] MEDS ORDERED: POLYETHYLENE GLYCOL (HEALTHYLAX) 3350 17 GM PACKET PO PRN (19:39)
[2024-06-14] MEDS ORDERED: LOPERAMIDE HCL 2 MG CAPSULE PO PRN (19:39)
[2024-06-14] MEDS ORDERED: MAG HYDROX/AL HYDROX/SIMETH 30 ML UNIT-DOSE CUP PO PRN (19:39)
[2024-06-14] MEDS ORDERED: guaiFENesin 600 MG TABLET.ER (FP) PO PRN (19:39)
[2024-06-14] MEDS ORDERED: BENZONATATE 200 MG CAPSULE PO PRN (19:39)
[2024-06-14] MEDS ORDERED: NICOTINE POLACRILEX 2 MG GUM BUC PRN (19:39)
[2024-06-14] MEDS ORDERED: P-EPHED 60MG/TRIPROLIDI 2.5MG TABLET PO PRN (19:39)
[2024-06-14] MEDS ORDERED: NICOTINE POLACRILEX 2 MG LOZENGE BC PRN (19:39)
[2024-06-14] MEDS ORDERED: DOCUSATE SODIUM 100 MG CAPSULE (FP) PO PRN (19:39)
[2024-06-14] MEDS ORDERED: METOPROLOL TARTRATE 25 MG TABLET (FP) ONE (20:04)
[2024-06-14] MEDS: METOPROLOL TARTRATE 25 MG TABLET (FP) PO ONE (20:16)
[2024-06-14] MEDS: levETIRAcetam 500 MG TABLET (FP) PO SCH (22:01)
[2024-06-14] MEDS: CARVEDILOL 25 MG TABLET (FP) PO SCH (22:02)
[2024-06-14] MEDS: MELATONIN 5 MG TABLETS PO SCH (22:02)
[2024-06-14] MEDS: THIAMINE 100 MG TABLET PO SCH (22:02)
[2024-06-15] MEDS: cloNIDine HCL 0.1 MG TABLET PO ONE (08:25)
[2024-06-15] MEDS: FAMOTIDINE 20 MG TABLET PO SCH (08:25)
[2024-06-15] MEDS: EMPAGLIFLOZIN (JARDIANCE) 25 MG TABLET PO SCH (10:00)
[2024-06-15] MEDS: LOSARTAN POTASSIUM 50 MG TABLET PO SCH (10:00)
[2024-06-15 12:27] LABS: HEMATOCRIT 39.9 % (35.4-49); MCH 29.4 pg (25.7-33.7); MCHC 32.7 g/dl (32.0-35.9); MEAN CELL VOLUME 89.9 fl (80-96); MEAN PLT VOLUME 7.5 fl (7.5-11.1); PLATELET COUNT 309 10^3/uL (134-434); RBC 4.43 M/mm3 (4.00-5.60); RDW 15.6 % (11.9-15.9); WHITE BLOOD COUNT 7.1 K/mm3 (4.0-10.0)
[2024-06-15 12:32] LABS: CHLORIDE 104 mmol/L (98-107); POTASSIUM 4.2 mmol/L (3.5-5.1); SODIUM 139 mmol/L (136-145)
[2024-06-15 12:43] LABS: ANION GAP 6 mmol/L (4-13); CALCIUM 8.9 mg/dL (8.5-10.1); CO2 28 mmol/L (21-32); GLUCOSE,RANDOM 83 mg/dL (74-106)
[2024-06-15 12:46] LABS: CREATININE 0.9 mg/dL (0.55-1.3); SGOT/AST 20 U/L (15-37); SGPT/ALT 22 U/L (13-61)
[2024-06-15 12:48] LABS: BILIRUBIN,TOTAL 0.4 mg/dL (0.2-1); TOT PROT 7.1 g/dl (6.4-8.2)
[2024-06-15 12:49] LABS: ALK PHOS 64 U/L (45-117)
[2024-06-15] MEDS: amLODIPine BESYLATE 10 MG TABLET (FP) PO SCH (12:58)
[2024-06-15] MEDS: PRENATAL VITAMINS W/ FOLIC ACID TABLET (FP) PO SCH (12:58)
[2024-06-15] MEDS ORDERED: methaDONE HCL 10 MG TABLET PO ONE (13:15)
[2024-06-15] MEDS: LOSARTAN POTASSIUM 50 MG TABLET PO ONE (14:15)
[2024-06-15] MEDS: CARVEDILOL 25 MG TABLET (FP) PO ONE (14:15)
[2024-06-15] MEDS: amLODIPine BESYLATE 10 MG TABLET (FP) PO ONE (14:15)
[2024-06-15] MEDS: EMPAGLIFLOZIN (JARDIANCE) 25 MG TABLET PO ONE (14:16)
[2024-06-15] MEDS: levETIRAcetam 500 MG TABLET (FP) PO ONE (14:16)
[2024-06-15] MEDS: methaDONE HCL 10 MG TABLET PO ONE (14:45)
[2024-06-15] MEDS: levETIRAcetam 500 MG TABLET (FP) PO SCH (22:07)
[2024-06-15] MEDS: CARVEDILOL 25 MG TABLET (FP) PO SCH (22:07)
[2024-06-16] MEDS ORDERED: methaDONE HCL 40 MG DISPERSABLE TABLET PO SCH (06:00)
[2024-06-16] MEDS: IBUPROFEN 400 MG TABLET (FP) PO PRN (07:28)
[2024-06-16] MEDS: EMPAGLIFLOZIN (JARDIANCE) 25 MG TABLET PO SCH (10:31)
[2024-06-16] MEDS: PRENATAL VITAMINS W/ FOLIC ACID TABLET (FP) PO SCH (10:32)
[2024-06-16] MEDS: amLODIPine BESYLATE 10 MG TABLET (FP) PO SCH (10:32)
[2024-06-16] MEDS: LOSARTAN POTASSIUM 50 MG TABLET PO SCH (10:32)
[2024-06-16] MEDS: IBUPROFEN 600 MG TABLET (FP) PO PRN (10:42)
[2024-06-16] MEDS: ACETAMINOPHEN 325 MG TABLET (FP) PO PRN (21:39)
[2024-06-16 23:44] LABS: URINE APPEARANCE Clear; URINE BILIRUBIN Negative (NEGATIVE); URINE COLOR Yellow; URINE GLUCOSE (UA) 3+ (NEGATIVE); URINE KETONE Trace (NEGATIVE); URINE LEUK ESTERASE Negative (NEGATIVE); URINE NITRITE Negative (NEGATIVE); URINE PROTEIN 1+ (NEGATIVE); URINE UROBILINOGEN 0.2 mg/dL (0.2-1.0)
[2024-06-17] MEDS ORDERED: INSULIN (NOVOLOG) ASPART 100 UNITS/ML 10ML VIAL ONE (07:12)
[2024-06-17] MEDS: CARVEDILOL 25 MG TABLET (FP) PO SCH (21:51)
[2024-06-17] MEDS: BACLOFEN 10 MG TABLET (FP) PO SCH (21:54)
[2024-06-18] MEDS: LOSARTAN POTASSIUM 50 MG TABLET PO SCH (10:17)
[2024-06-18] MEDS: amLODIPine BESYLATE 10 MG TABLET (FP) PO SCH (10:18)
[2024-06-19] MEDS ORDERED: OXYMETAZOLINE 0.05% NASAL SOLUTION 15 ML BOTTLE NS PRN (10:00)
[2024-06-19] MEDS: MIRTAZAPINE 15 MG TABLET (FP) PO SCH (21:40)
[2024-06-20] MEDS: hydrOXYzine PAMOATE 25 MG CAPSULE (FP) PO PRN (21:25)
[2024-06-23] MEDS: methaDONE HCL 10 MG TABLET PO SCH (08:52)
[2024-06-25] MEDS: BISACODYL 5 MG TABLET.DR (FP) PO PRN (18:15)
[2024-06-26] MEDS: MIRTAZAPINE 15 MG TABLET (FP) PO SCH (21:26)
[2024-06-27] MEDS: MAGNESIUM HYDROX 2400MG/30ML ORAL SUSPENSION 30 ML CUP PO PRN (20:01)
[2024-07-01 07:17] VITALS: RESP 16; TEMP 98
[2024-07-01 09:17] VITALS: BP 122/84; PULSE 75
[2024-07-01] MEDS: NALOXONE (NYS OPIOID OVERDOSE PROGRAM) 4 MG/0.1 ML SPRAY NS SCH (09:25)
== END 2024-07-01 09:31 | disposition home or self-care (01) | DRG 895 ==
LOC: YASAS 17:45 → Y3E 19:40
PROVIDERS: ADMIT Allergy & Immunology; ATTEND Allergy & Immunology
PROC: HZ42ZZZ Group Counseling for Substance Abuse Treatment, Cognitive-Behavioral (ICD-10-PCS; principal; 2024-06-14)
DX: F10.20 Alcohol dependence, uncomplicated (principal); F11.20 Opioid dependence, uncomplicated; F14.20 Cocaine dependence, uncomplicated; F17.210 Nicotine dependence, cigarettes, uncomplicated; F19.982 Other psychoactive substance use, unspecified with psychoactive substance-induced sleep disorder; F41.9 Anxiety disorder, unspecified; F32.A Depression, unspecified; I10 Essential (primary) hypertension; E11.9 Type 2 diabetes mellitus without complications; K21.9 Gastro-esophageal reflux disease without esophagitis; E78.5 Hyperlipidemia, unspecified; G62.89 Other specified polyneuropathies; M16.12 Unilateral primary osteoarthritis, left hip; R09.81 Nasal congestion; W06.XXXA Fall from bed, initial encounter; Y93.89 Activity, other specified; Y92.230 Patient room in hospital as the place of occurrence of the external cause; R26.2 Difficulty in walking, not elsewhere classified; Z99.89 Dependence on other enabling machines and devices; Z98.890 Other specified postprocedural states; Z56.0 Unemployment, unspecified
CPT/HCPCS: 36415; 80053; 80305; 80307; 81003; 82140; 82652; 82962; 85027; 86780; J0475

== ENCOUNTER 2024-06-25 10:33 | Emergency (ER) | payer OTHER ==
[2024-06-25 12:17] VITALS: BP 109/78; PULSE 64; RESP 16; TEMP 98.6; BMI 21.0
== END 2024-06-25 13:20 | disposition home or self-care (01) ==
LOC: JERFT 10:33 → JER 10:33
DX: S49.91XA Unspecified injury of right shoulder and upper arm, initial encounter (principal); W06.XXXA Fall from bed, initial encounter
CPT/HCPCS: 70450-TC; 72170-TC-FY; 73030-TC-RT-FY; 73502-TC-LT-FY; 99283-25

== ENCOUNTER 2024-08-28 13:30 | Inpatient (IN) | payer OTHER ==
[2024-08-28 14:28] VITALS: BMI 22.3
[2024-08-28] MEDS ORDERED: NICOTINE POLACRILEX 2 MG GUM BUC PRN (15:52)
[2024-08-28] MEDS ORDERED: BENZONATATE 200 MG CAPSULE PO PRN (15:52)
[2024-08-28] MEDS ORDERED: NICOTINE POLACRILEX 2 MG LOZENGE BC PRN (15:52)
[2024-08-28] MEDS ORDERED: P-EPHED 60MG/TRIPROLIDI 2.5MG TABLET PO PRN (15:52)
[2024-08-28] MEDS ORDERED: guaiFENesin 600 MG TABLET.ER (FP) PO PRN (15:52)
[2024-08-28] MEDS ORDERED: POLYETHYLENE GLYCOL (HEALTHYLAX) 3350 17 GM PACKET PO PRN (15:52)
[2024-08-28] MEDS ORDERED: MAGNESIUM HYDROX 2400MG/30ML ORAL SUSPENSION 30 ML CUP PO PRN (15:52)
[2024-08-28] MEDS ORDERED: ACETAMINOPHEN 325 MG TABLET (FP) PO PRN (15:52)
[2024-08-28] MEDS ORDERED: DOCUSATE SODIUM 100 MG CAPSULE (FP) PO PRN (15:52)
[2024-08-28] MEDS ORDERED: BISACODYL 5 MG TABLET.DR (FP) PO PRN (15:52)
[2024-08-28] MEDS ORDERED: NALOXONE (NARCAN) HCL 4 MG/0.1 ML SPRAY NS PRN (15:52)
[2024-08-28] MEDS ORDERED: LOPERAMIDE HCL 2 MG CAPSULE ONE (18:29)
[2024-08-28] MEDS: IBUPROFEN 400 MG TABLET (FP) PO PRN (19:27)
[2024-08-28] MEDS: MELATONIN 5 MG TABLETS PO SCH (21:17)
[2024-08-28] MEDS: THIAMINE 100 MG TABLET PO SCH (21:17)
[2024-08-28] MEDS: GABAPENTIN 300 MG CAPSULE PO SCH (21:17)
[2024-08-28] MEDS: levETIRAcetam 500 MG TABLET (FP) PO SCH (21:17)
[2024-08-28] MEDS ORDERED: CARVEDILOL 25 MG TABLET (FP) PO SCH (22:00)
[2024-08-28] MEDS: CARVEDILOL 25 MG TABLET (FP) PO SCH (22:10)
[2024-08-29] MEDS: METHOCARBAMOL 500 MG TABLET PO PRN (00:10)
[2024-08-29] MEDS: metFORMIN HCL 500 MG TABLET (FP) PO SCH (07:04)
[2024-08-29] MEDS: FAMOTIDINE 20 MG TABLET PO SCH (07:04)
[2024-08-29] MEDS: EMPAGLIFLOZIN (JARDIANCE) 25 MG TABLET PO SCH (07:10)
[2024-08-29] MEDS ORDERED: LOSARTAN POTASSIUM 50 MG TABLET PO SCH (10:00)
[2024-08-29] MEDS: LOSARTAN POTASSIUM 50 MG TABLET PO SCH (10:39)
[2024-08-29] MEDS: PRENATAL VITAMINS W/ FOLIC ACID TABLET (FP) PO SCH (10:39)
[2024-08-29] MEDS: FOLIC ACID 1 MG TABLET (FP) PO SCH (10:39)
[2024-08-29] MEDS: BUPRENORPHINE/NALOXONE 8 MG/2 MG FILM PACKET SL SCH (10:39)
[2024-08-29] MEDS: ASPIRIN COATED 81 MG TABLET.EC PO SCH (10:42)
[2024-08-29 11:11] LABS: HEMATOCRIT 35.8 % (35.4-49); MCH 29.9 pg (25.7-33.7); MCHC 33.7 g/dl (32.0-35.9); MEAN CELL VOLUME 88.8 fl (80-96); MEAN PLT VOLUME 7.4 fl (7.5-11.1); PLATELET COUNT 228 10^3/uL (134-434); RBC 4.03 M/mm3 (4.00-5.60); WHITE BLOOD COUNT 6.6 K/mm3 (4.0-10.0)
[2024-08-29 11:19] LABS: POTASSIUM 4.4 mmol/L (3.5-5.1)
[2024-08-29 11:25] LABS: ALBUMIN 2.9 g/dl (3.4-5.0); BLOOD UREA NITROGEN 32.2 mg/dL (7-18); CALCIUM 8.6 mg/dL (8.5-10.1)
[2024-08-29 11:27] LABS: BILIRUBIN,TOTAL 0.3 mg/dL (0.2-1); TOT PROT 6.4 g/dl (6.4-8.2)
[2024-08-29 11:29] LABS: CREATININE 1.3 mg/dL (0.55-1.3)
[2024-08-29] MEDS: SPIRONOLACTONE 25 MG TABLET PO SCH (13:56)
[2024-08-29] MEDS: hydrOXYzine PAMOATE 25 MG CAPSULE (FP) PO PRN (18:08)
[2024-08-30] MEDS: FAMOTIDINE 20 MG TABLET PO SCH (06:21)
[2024-08-30] MEDS: NICOTINE 7 MG/24 HOURS TOPICAL PATCH TD SCH (11:29)
[2024-08-31] MEDS: BENZOCAINE/MENTHOL (CHLORASEPTIC ) LOZENGE MM PRN (06:38)
[2024-08-31 17:52] LABS: URINE APPEARANCE CLEAR; URINE BILIRUBIN NEGATIVE (NEGATIVE); URINE COLOR YELLOW; URINE GLUCOSE (UA) 3+ (NEGATIVE); URINE KETONE NEGATIVE (NEGATIVE); URINE LEUK ESTERASE NEGATIVE (NEGATIVE); URINE NITRITE NEGATIVE (NEGATIVE); URINE PROTEIN NEGATIVE (NEGATIVE); URINE UROBILINOGEN 0.2 mg/dL (0.2-1.0)
[2024-09-01] MEDS: MAG HYDROX/AL HYDROX/SIMETH 30 ML UNIT-DOSE CUP PO PRN (00:59)
[2024-09-03] MEDS: GABAPENTIN 300 MG CAPSULE PO SCH (14:45)
[2024-09-03] MEDS: BUPRENORPHINE/NALOXONE 4 MG/1 MG FILM PACKET SL SCH (14:46)
[2024-09-03] MEDS: BUPRENORPHINE/NALOXONE 8 MG/2 MG FILM PACKET SL SCH (21:57)
[2024-09-03] MEDS: MIRTAZAPINE 15 MG TABLET (FP) PO SCH (21:57)
[2024-09-06] MEDS: LOPERAMIDE HCL 2 MG CAPSULE PO PRN (14:20)
[2024-09-10] MEDS ORDERED: HYDROCORTISONE 2.5% TOPICAL CREAM 30 GM TUBE TP PRN (14:43)
[2024-09-14] MEDS: BISMUTH SUBSALICYLATE 524 MG/30 ML PO PRN (15:18)
[2024-09-16] MEDS: SIMETHICONE 80 MG TAB.CHEW (FP) PO PRN (09:56)
[2024-09-16] MEDS: BISMUTH SUBSALICYLATE 262 MG/15 ML BTL PO PRN (23:09)
[2024-09-17] MEDS: AZITHROMYCIN 250 MG TABLET PO ONE (14:57)
[2024-09-17] MEDS: MELATONIN 5 MG TABLETS PO SCH (23:51)
[2024-09-17] MEDS: GABAPENTIN 400 MG CAPSULE PO SCH (23:52)
[2024-09-18] MEDS ORDERED: AZITHROMYCIN 250 MG TABLET PO SCH ×2 (10:00)
[2024-09-18] MEDS: AZITHROMYCIN 250 MG TABLET PO SCH (10:52)
[2024-09-23 07:03] VITALS: RESP 18; TEMP 98.2
[2024-09-23 10:40] VITALS: BP 128/76; PULSE 77
== END 2024-09-23 13:31 | disposition home or self-care (01) | DRG 895 ==
LOC: YASAS 13:30 → Y5N 18:30
PROVIDERS: ADMIT Psychiatry & Neurology Pain Medicine; ATTEND Psychiatry & Neurology Pain Medicine
PROC: HZ42ZZZ Group Counseling for Substance Abuse Treatment, Cognitive-Behavioral (ICD-10-PCS; principal; 2024-08-28)
DX: F14.20 Cocaine dependence, uncomplicated (principal); F11.20 Opioid dependence, uncomplicated; F19.282 Other psychoactive substance dependence with psychoactive substance-induced sleep disorder; F10.20 Alcohol dependence, uncomplicated; F17.210 Nicotine dependence, cigarettes, uncomplicated; F41.9 Anxiety disorder, unspecified; F32.A Depression, unspecified; G40.909 Epilepsy, unspecified, not intractable, without status epilepticus; I11.0 Hypertensive heart disease with heart failure; I50.9 Heart failure, unspecified; E78.5 Hyperlipidemia, unspecified; E11.9 Type 2 diabetes mellitus without complications; Z79.84 Long term (current) use of oral hypoglycemic drugs; R19.7 Diarrhea, unspecified; Z87.820 Personal history of traumatic brain injury; Z99.89 Dependence on other enabling machines and devices
CPT/HCPCS: 0241U-QW; 36415; 80053; 80305; 80307; 81003; 82962; 85027; 86780; 87811